=== PATIENT | male | born 1955 | race Caucasian/White ===

== ENCOUNTER 2020-06-17 06:52 | Outpatient (REF) | payer OTHER, SELFPAY ==
[2020-06-17 11:39] LABS: Hematocrit 50.4 % (42-52); Hemoglobin 17.2 g/dl (14.0-18.0)
[2020-06-17 12:04] LABS: Alanine Aminotransferase 50 U/L (0-40); Albumin Level 4.8 g/dL (3.5-5.0); Alkaline Phosphatase 60 U/L (39-117); Anion Gap 18 (12-20); Aspartate Amino Transferase 31 U/L (5-37); Bilirubin Total 1.5 mg/dL (0.0-1.0); Blood Urea Nitrogen 14 mg/dL (9-16); Calcium 10.1 mg/dL (8.4-10.2); Carbon Dioxide 27 mmol/L (22-29); Chloride 101 mmol/L (96-108); Cholesterol 158 mg/dL; Estimated Glomerular Filt Rate > 60; Glucose Fasting 94 mg/dL (60-99); HDL Cholesterol 46 mg/dL; LDL Cholesterol Calculated 97 mg/dl; Potassium 3.5 mmol/L (3.3-5.1); Sodium 142 mmol/L (135-145); Total Protein 7.8 g/dL (6.5-8.0); Triglycerides 75 mg/dL
== END 2020-06-17 06:53 | disposition home or self-care (01) ==
LOC: HO.HMGCLDS 06:52
PROVIDERS: PCP Internal Medicine; Visit Provider Internal Medicine
DX: Z00.01 Encounter for general adult medical examination with abnormal findings (principal); I10 Essential (primary) hypertension
CPT/HCPCS: 36415; 80053; 80061; 85014; 85018

== ENCOUNTER 2021-03-06 06:31 | Outpatient (REF) | payer OTHER, SELFPAY ==
[2021-03-06 12:01] LABS: Alanine Aminotransferase 30 U/L (0-40); Albumin Level 4.6 g/dL (3.5-5.0); Alkaline Phosphatase 53 U/L (39-117); Anion Gap 12 (12-20); Aspartate Amino Transferase 22 U/L (5-37); Bilirubin Total 1.1 mg/dL (0.0-1.0); Blood Urea Nitrogen 15 mg/dL (9-16); Calcium 10.2 mg/dL (8.4-10.2); Carbon Dioxide 32 mmol/L (22-29); Chloride 102 mmol/L (96-108); Estimated Glomerular Filt Rate > 60; Glucose Random 87 mg/dL (60-115); Potassium 3.6 mmol/L (3.3-5.1); Sodium 142 mmol/L (135-145); Total Protein 7.5 g/dL (6.5-8.0)
[2021-03-07 17:57] LABS: LDL Cholesterol Direct 95 mg/dL (<100)
== END 2021-03-06 06:32 | disposition home or self-care (01) ==
LOC: HO.HMGCLDS 06:31
PROVIDERS: PCP Internal Medicine; Visit Provider Internal Medicine
DX: I10 Essential (primary) hypertension (principal)
CPT/HCPCS: 36415; 80053; 83721

== ENCOUNTER 2021-08-18 07:21 | Outpatient (REF) | payer OTHER, SELFPAY ==
[2021-08-18 11:31] LABS: MANUAL DIFF FLAG NO
[2021-08-18 11:42] LABS: Basophils Percent Auto 0.2 % (0-2); Eosinophils Absolute Auto 0.7 X10*3/uL (0.0-0.4); Eosinophils Percent Auto 7.4 % (0-4); Hematocrit 47.8 % (42.0-52.0); Hemoglobin 16.6 g/dl (14.0-18.0); Imm Gran Abs Auto 0.02 X10*3/uL (0.00-0.03); Imm Gran Pct Auto 0.2 % (0.0-0.4); Lymphocytes Absolute Auto 1.9 X10*3/uL (1.2-4.9); Mean Corpuscular HGB Conc 34.7 g/dl (31.0-36.0); Mean Corpuscular Hemoglobin 31.9 pg (27.0-33.0); Mean Corpuscular Volume 91.9 fL (80.0-98.0); Monocytes Absolute Auto 0.6 X10*3/uL (0.1-1.2); Monocytes Percent Auto 6.7 % (2-11); Neutrophils Absolute Auto 5.7 x10*3/uL (2.0-8.3); Neutrophils Percent Auto 64.5 % (45-73); Platelet Count 264 X10*3/uL (160-400); Red Cell Distribution Width 12.9 % (11.0-16.0); White Blood Count 8.8 X10*3/uL (4.8-10.8)
[2021-08-18 12:23] LABS: Vitamin B12 186 pg/mL (200-900)
[2021-08-18 12:40] LABS: Alanine Aminotransferase 34 U/L (0-40); Albumin Level 4.5 g/dL (3.5-5.0); Anion Gap 14 (12-20); Aspartate Amino Transferase 24 U/L (5-37); Bilirubin Total 1.2 mg/dL (0.0-1.0); Blood Urea Nitrogen 15 mg/dL (9-16); Calcium 9.1 mg/dL (8.4-10.2); Carbon Dioxide 28 mmol/L (22-29); Chloride 103 mmol/L (96-108); Cholesterol 175 mg/dL; Estimated Glomerular Filt Rate > 60; Glucose Fasting 98 mg/dL (60-99); Potassium 3.8 mmol/L (3.3-5.1); Sodium 141 mmol/L (135-145); Total Protein 7.4 g/dL (6.5-8.0); Triglycerides 74 mg/dL
[2021-08-18 12:41] LABS: Alkaline Phosphatase 61 U/L (39-117); HDL Cholesterol 50 mg/dL; LDL Cholesterol Calculated 111 mg/dl
[2021-08-22 16:26] LABS: Vitamin D 25-OH, D2 <4 ng/mL; Vitamin D 25-OH, D3 28 ng/mL; Vitamin D 25-OH, Total 28 ng/mL (30-100)
== END 2021-08-18 07:22 | disposition home or self-care (01) ==
LOC: HO.HMGCLDS 07:21
PROVIDERS: Visit Provider Internal Medicine
DX: I10 Essential (primary) hypertension (principal)
CPT/HCPCS: 36415; 80053; 80061; 82306; 82607; 84443; 85025

== ENCOUNTER 2021-12-22 06:38 | Outpatient (REF) | payer OTHER, SELFPAY ==
[2021-12-22 12:17] LABS: Alanine Aminotransferase 31 U/L (0-40); Albumin Level 4.5 g/dL (3.5-5.0); Alkaline Phosphatase 57 U/L (39-117); Anion Gap 16 (12-20); Aspartate Amino Transferase 25 U/L (5-37); Bilirubin Total 0.9 mg/dL (0.0-1.0); Blood Urea Nitrogen 18 mg/dL (9-16); Calcium 9.6 mg/dL (8.4-10.2); Carbon Dioxide 27 mmol/L (22-29); Chloride 101 mmol/L (96-108); Estimated Glomerular Filt Rate > 60; Glucose Fasting 103 mg/dL (60-99); Potassium 3.3 mmol/L (3.3-5.1); Sodium 141 mmol/L (135-145); Total Protein 7.3 g/dL (6.5-8.0)
[2021-12-22 12:39] LABS: Vitamin B12 497 pg/mL (200-900)
== END 2021-12-22 06:39 | disposition home or self-care (01) ==
LOC: HO.HMGCLDS 06:38
PROVIDERS: PCP Internal Medicine; Visit Provider Internal Medicine
DX: I10 Essential (primary) hypertension (principal); E53.8 Deficiency of other specified B group vitamins
CPT/HCPCS: 36415; 80053; 82607

== ENCOUNTER 2022-04-24 06:47 | Outpatient (REF) | payer OTHER, SELFPAY ==
[2022-04-24 11:24] LABS: MANUAL DIFF FLAG NO
[2022-04-24 11:40] LABS: Basophils Percent Auto 0.4 % (0-2); Eosinophils Absolute Auto 0.5 X10*3/uL (0.0-0.4); Eosinophils Percent Auto 6.2 % (0-4); Hematocrit 47.4 % (42.0-52.0); Hemoglobin 16.5 g/dl (14.0-18.0); Imm Gran Abs Auto 0.02 X10*3/uL (0.00-0.03); Imm Gran Pct Auto 0.2 % (0.0-0.4); Lymphocytes Absolute Auto 1.8 X10*3/uL (1.2-4.9); Lymphocytes Percent Auto 21.6 % (20-40); Mean Corpuscular HGB Conc 34.8 g/dl (31.0-36.0); Mean Corpuscular Hemoglobin 31.8 pg (27.0-33.0); Mean Corpuscular Volume 91.3 fL (80.0-98.0); Mean Platelet Volume 10.5 fL (9.4-12.4); Monocytes Absolute Auto 0.7 X10*3/uL (0.1-1.2); Monocytes Percent Auto 8.1 % (2-11); Neutrophils Absolute Auto 5.4 x10*3/uL (2.0-8.3); Neutrophils Percent Auto 63.5 % (45-73); Platelet Count 241 X10*3/uL (160-400); Red Blood Count 5.19 X10*6/uL (4.60-5.80); Red Cell Distribution Width 12.6 % (11.0-16.0); White Blood Count 8.5 X10*3/uL (4.8-10.8)
[2022-04-24 12:03] LABS: Alanine Aminotransferase 41 U/L (0-40); Albumin Level 4.4 g/dL (3.5-5.0); Alkaline Phosphatase 56 U/L (39-117); Anion Gap 12 (12-20); Aspartate Amino Transferase 26 U/L (5-37); Bilirubin Total 1.3 mg/dL (0.0-1.0); Blood Urea Nitrogen 14 mg/dL (9-16); Calcium 9.7 mg/dL (8.4-10.2); Carbon Dioxide 29 mmol/L (22-29); Chloride 104 mmol/L (96-108); Cholesterol 164 mg/dL; Estimated Glomerular Filt Rate > 60; Glucose Fasting 100 mg/dL (60-99); HDL Cholesterol 44 mg/dL; LDL Cholesterol Calculated 108 mg/dl; Potassium 3.7 mmol/L (3.3-5.1); Sodium 141 mmol/L (135-145); Total Protein 6.9 g/dL (6.5-8.0); Triglycerides 62 mg/dL
[2022-04-24 12:13] LABS: TSH reflex Free T4 0.94 uIU/mL (0.32-4.0); Vitamin B12 672 pg/mL (200-900)
[2022-05-02 14:14] LABS: Vitamin D 25-OH, D2 <4 ng/mL; Vitamin D 25-OH, D3 18 ng/mL; Vitamin D 25-OH, Total 18 ng/mL (30-100)
== END 2022-04-24 06:48 | disposition home or self-care (01) ==
LOC: HO.HMGCLDS 06:47
PROVIDERS: PCP Internal Medicine; Visit Provider Internal Medicine
DX: E53.8 Deficiency of other specified B group vitamins (principal); I10 Essential (primary) hypertension; E55.9 Vitamin D deficiency, unspecified
CPT/HCPCS: 36415; 80053; 80061; 82306; 82607; 84443; 85025

== ENCOUNTER 2022-08-27 08:47 | Outpatient (REF) | payer OTHER, SELFPAY | END 2022-08-27 08:48 | disposition home or self-care (01) | LOC: HO.HMGCLDS 08:47 | PROVIDERS: PCP Internal Medicine; Visit Provider Internal Medicine | DX: Z00.01 Encounter for general adult medical examination with abnormal findings (principal); E53.8 Deficiency of other specified B group vitamins; I10 Essential (primary) hypertension | CPT/HCPCS: 36415; 80053; 80061; 82607 ==

== ENCOUNTER 2022-11-17 09:54 | Outpatient (AMB) | payer OTHER, SELFPAY ==
[2022-11-17 09:57] VITALS: BP 144/82; PULSE 74; O2SAT 98; BMI 29.2
--- NOTE | 2022-11-17 09:57 | A.OFFPC_ITS ---
Vital Signs 11/17/22 09:57 Height 5 ft 8 in Weight 192 lb 4 oz BMI 29.2 BP 144/82 H Blood Pressure Location Lt brachial Position Sitting Pulse 74 Pulse Source Pulse Oximeter Pulse Oximetry (%) 98 Oxygen Delivery Method Room Air Intake Visit Reasons: 3 month follow up Allergies codeine [CODEINE] Allergy (Severe, Verified 11/17/22 09:57) STOMACH UPSET lisinopril Adverse Reaction (Unknown, Verified 11/17/22 09:57) cough Codeine Sulfate Adverse Reaction (Unknown, Uncoded 08/21/22 10:38) nausea and vomiting Medication List - Last Reconciled 11/17/22 by Jessy Goodwin MD amlodipine 10 mg PO DAILY 90 days chlorthalidone 25 mg PO DAILY 90 days cyanocobalamin (vitamin B-12) 1,000 mcg PO DAILY 90 days metoprolol succinate ER 100 mg PO DAILY 90 days Tobacco use date assessed: 11/17/22 Fall risk assessment: No Falls in past year Last assessed Fall Risk: 11/17/22 Dental Screening Dental Screen Date: 11/17/22 Did you have a dental visit in the last 12 months?: Yes Did you have a dental problem in the last 6 months where you did not have access to dental care?: No Was dental information given to patient?: Patient has dentist HPI 3 month follow up HPI Details Patient is 67-year-old male came in today for his regular follow-up appointment on blood pressure.? Patient is doing well offered no new complaints today? Hypertension:? Blood pressure is elevated today, he has been dealing with new insurance which is causing some distress. He is taking amlodipine 10 mg, chlorthalidone 25 mg and metoprolol 100 mg IFS : stable / diet control last fasting sugar is 100 LFT : mild elevation, but stable We will repeat labs again before his next visit B12 level was too high in August, he has stopped the supplement Follow-up 4 months [facility] Social History Housing: House Patient Tobacco Use Status: Never used Tobacco e-Cigarette/Vaping Use: Never Used Second Hand Smoke Exposure: No service: No Current occupational status: employed Cognitive needs: No Hearing needs: No Vision needs: No Questionnaire Thrive Questionnaire Date Thrive assessed: 08/21/22 AUDIT C Alcohol Use Questionnaire (AUDIT-C) 1. How often do you have a drink containing alcohol?: Never 3. How often do you have six or more drinks on one occasion?: Never Total Score: 0 Score Reviewed/Action Taken: Yes RAFFI-7 AMB Questionnaire RAFFI-7 Date RAFFI - 7 assessed: 08/21/22 Source: Developed by Drs. Robin Andrews, Tanya Rodríguez, Albert Henry and colleagues, with an educational mavis from [employer]. Review of Systems Const Denies chills and Denies fever(s) ENT Denies epistaxis and Denies nasal discharge Card Denies chest pain Resp Denies chest congestion, Denies cough and Denies hemoptysis GI Denies diarrhea and Denies nausea Skin/Breast Denies rash Neuro Reports no additional complaints Psych Reports no additional complaints Endo Reports no additional complaints Physical exam (Primary Care) Vital Signs: Last Vital Signs Pulse 74 11/17/22 09:57 BP 144/82 H 11/17/22 09:57 Pulse Ox 98 11/17/22 09:57 Oxygen Delivery Method Room Air 11/17/22 09:57 BMI result Body Mass Index 29.2 Tobacco/Smoking Status: Tobacco use Status Tobacco use date assessed 11/17/22 11/17/22 09:58 Patient Tobacco Use Status Never used Tobacco 11/17/22 09:58 e-Cigarette/Vaping Use Never Used 11/17/22 09:58 Thrive Assessment: Date of Thrive Assessment Date Thrive assessed 08/21/22 11/17/22 09:58 Const General: cooperative, comfortable and no acute distress Orientation/consciousness: patient oriented x3 HENMT Head: Yes normocephalic Eyes General: appearance normal, both eyes and all related structures Neck Neck: Yes supple Resp Effort & Inspection: normal respiratory effort, no cough and no stridor Cardio Rhythm: regular rhythm Heart sounds: S1 normal heart sound present and S2 normal heart sound present Skin General skin exam: turgor normal Neuro General: patient oriented x3, tone normal and moves all extremities Extrem Right lower extremity: no edema Left lower extremity: no edema Assessment and Plan Assessment & Plan (1) Hypertension, essential: Code(s): I10 - Essential (primary) hypertension (2) B12 deficiency: Code(s): E53.8 - Deficiency of other specified B group vitamins (3) LFT elevation: Code(s): R79.89 - Other specified abnormal findings of blood chemistry (4) Impaired fasting blood sugar: Code(s): R73.01 - Impaired fasting glucose Plan Patient is 67-year-old male came in today for his regular follow-up appointment on blood pressure.? Patient is doing well offered no new complaints today? Hypertension:? Blood pressure is elevated today, he has been dealing with new insurance which is causing some distress. He is taking amlodipine 10 mg, chlorthalidone 25 mg and metoprolol 100 mg IFS : stable / diet control last fasting sugar is 100 LFT : mild elevation, but stable We will repeat labs again before his next visit B12 level was too high in August, he has stopped the supplement Follow-up 4 months Orders: Orders Lipid Panel Today I10 - Essential (primary) hypertension Vitamin D 25-OH (D2 and D3) Today E53.8 - Deficiency of other specified B group vitamins Complete Blood Count Auto Diff Today I10 - Essential (primary) hypertension Comprehensive [place]. Panel Fast Today I10 - Essential (primary) hypertension Coding Level of Care Code Est Pt Level 4 (66107) Diagnoses Hypertension, essential I10 B12 deficiency E53.8 LFT elevation R79.89 Impaired fasting blood sugar R73.01
== END 2022-11-17 11:42 | disposition home or self-care (01) ==
PROVIDERS: PCP Internal Medicine; Visit Provider Internal Medicine
DX: I10 Essential (primary) hypertension (principal); E53.8 Deficiency of other specified B group vitamins; R79.89 Other specified abnormal findings of blood chemistry; R73.01 Impaired fasting glucose
CPT/HCPCS: 99214

== ENCOUNTER 2023-03-17 08:37 | Outpatient (REF) | payer MEDICARE, SELFPAY ==
[2023-03-17 11:15] LABS: MANUAL DIFF FLAG NO
[2023-03-17 11:19] LABS: Basophils Percent Auto 0.5 % (0-2); Eosinophils Absolute Auto 0.5 X10*3/uL (0.0-0.4); Eosinophils Percent Auto 5.9 % (0-4); Hematocrit 49.2 % (42.0-52.0); Hemoglobin 17.2 g/dl (14.0-18.0); Imm Gran Abs Auto 0.02 X10*3/uL (0.00-0.03); Imm Gran Pct Auto 0.2 % (0.0-0.4); Lymphocytes Percent Auto 24.2 % (20-40); Mean Corpuscular Hemoglobin 31.4 pg (27.0-33.0); Mean Corpuscular Volume 89.9 fL (80.0-98.0); Mean Platelet Volume 10.2 fL (9.4-12.4); Monocytes Absolute Auto 0.7 X10*3/uL (0.1-1.2); Monocytes Percent Auto 8.5 % (2-11); Neutrophils Absolute Auto 4.9 x10*3/uL (2.0-8.3); Neutrophils Percent Auto 60.7 % (45-73); Platelet Count 266 X10*3/uL (160-400); Red Blood Count 5.47 X10*6/uL (4.60-5.80); Red Cell Distribution Width 12.5 % (11.0-16.0); White Blood Count 8.1 X10*3/uL (4.8-10.8)
[2023-03-17 11:52] LABS: Alanine Aminotransferase 46 U/L (0-40); Albumin Level 4.5 g/dL (3.5-5.0); Alkaline Phosphatase 53 U/L (39-117); Anion Gap 13 (12-20); Aspartate Amino Transferase 30 U/L (5-37); Bilirubin Total 1.1 mg/dL (0.0-1.0); Blood Urea Nitrogen 12 mg/dL (9-16); Carbon Dioxide 31 mmol/L (22-29); Chloride 100 mmol/L (96-108); Cholesterol 167 mg/dL (<200); Estimated Glomerular Filt Rate > 60; Glucose Fasting 102 mg/dL (60-99); HDL Cholesterol 43 mg/dL (>40); LDL Cholesterol Calculated 109 mg/dL (<100); Potassium 3.3 mmol/L (3.3-5.1); Sodium 141 mmol/L (135-145); Total Protein 7.7 g/dL (6.5-8.0); Triglycerides 78 mg/dL (<150)
[2023-03-23 13:54] LABS: Vitamin D 25-OH, D2 <4 ng/mL; Vitamin D 25-OH, D3 16 ng/mL; Vitamin D 25-OH, Total 16 ng/mL (30-100)
== END 2023-03-17 08:38 | disposition home or self-care (01) ==
LOC: HO.HMGCLDS 08:37
PROVIDERS: PCP Internal Medicine; Visit Provider Internal Medicine
DX: I10 Essential (primary) hypertension (principal); E53.8 Deficiency of other specified B group vitamins
CPT/HCPCS: 36415; 80053; 80061; 82306; 85025

== ENCOUNTER 2023-03-19 08:28 | Outpatient (AMB) | payer MEDICARE, SELFPAY ==
[2023-03-19 08:31] VITALS: BP 146/82; PULSE 74; O2SAT 98; BMI 29.8
--- NOTE | 2023-03-19 08:31 | MHC.PC.OV ---
Vital Signs 03/19/23 08:31 Height 5 ft 8 in Weight 196 lb 2 oz BMI 29.8 BP 146/82 H Blood Pressure Location Lt brachial Position Sitting Pulse 74 Pulse Source Pulse Oximeter Pulse Oximetry (%) 98 Oxygen Delivery Method Room Air Intake Visit Reasons: 4 month follow up Allergies codeine [CODEINE] Allergy (Severe, Verified 03/19/23 08:34) STOMACH UPSET lisinopril Adverse Reaction (Unknown, Verified 03/19/23 08:34) cough Codeine Sulfate Adverse Reaction (Unknown, Uncoded 08/21/22 10:38) nausea and vomiting Medication List - Last Reconciled 03/19/23 by Jessy Goodwin MD amlodipine 10 mg PO DAILY 90 days chlorthalidone 25 mg PO DAILY 90 days cyanocobalamin (vitamin B-12) 1,000 mcg PO DAILY 90 days metoprolol succinate ER 100 mg PO DAILY 90 days Tobacco use date assessed: 03/19/23 Fall risk assessment: No Falls in past year Dental Screening Dental Screen Date: 03/19/23 Did you have a dental visit in the last 12 months?: Yes Did you have a dental problem in the last 6 months where you did not have access to dental care?: No Was dental information given to patient?: Patient has dentist HPI 4 month follow up HPI Details Patient is 67-year-old male came in today for his regular follow-up appointment Patient has been feeling under stress as his is going in for cardiac checkup today. His blood pressure is elevated however patient is monitoring it at home as well He tells me that it runs around 130 systolic He is taking amlodipine 10 mg, chlorthalidone 25 mg and metoprolol 100 mg, tolerating medications no side effects IFS : stable / diet control last fasting sugar is 100 LFT : mild elevation, but stable Labs were done recently reviewed B12 supplement on hold Follow-up 4 months [facility] Social History Housing: House Patient Tobacco Use Status: Never used Tobacco e-Cigarette/Vaping Use: Never Used Second Hand Smoke Exposure: No service: No Current occupational status: employed Cognitive needs: No Hearing needs: No Vision needs: No Questionnaire PHQ-9 Over the last 2 weeks, how often have you been bothered by any of the following problems? 1. Little interest or pleasure in doing things: not at all 2. Feeling down, depressed, or hopeless: not at all 3. Trouble falling or staying asleep, or sleeping too much: not at all 4. Feeling tired or having little energy: not at all 5. Poor appetite or overeating: not at all 6. Feeling bad about yourself - or that you are a failure or have let yourself or your family down: not at all 7. Trouble concentrating on things, such as reading the newspaper or watching television: not at all 8. Moving or speaking so slowly that other people could have noticed. Or the opposite - being so fidgety or restless that you have been moving around a lot more than usual: not at all 9. Thoughts that you would be better off or of hurting yourself in some way: not at all Total score: 0 Depression Screening Interpretation: Negative Depression Screening Done: Yes 51937 - PHQ-9 Billing: Yes Source: Developed by Drs. Robin Andrews, Tanya Rodríguez, Albert Henry and colleagues, with an educational mavis from [employer]. Thrive Questionnaire Date Thrive assessed: 03/19/23 I am a: Patient What is your living situation today?: I have a steady place to live Within the past 12 months, did the food you bought not last and you didn't have the money to get more?: Never true Within the past 12 months, did you worry whether your food would run out before you got money to buy more?: Never true Do you have trouble paying for medicines?: No Do you have trouble getting transportation to medical appointments?: No Do you have trouble paying your heating and electricity bill?: No Do you have trouble taking care of your child, family member or friend?: No Do you have trouble with day-to-day activities such as bathing, preparing meals, shopping, managing finances, etc.?: No Are you currently unemployed and looking for a job?: No Are you interested in more education?: No Please select the resources that you would like help with: None Currently or been in a relationship where the following occur: no concerns reported THRIVE Score: 0 AUDIT C Alcohol Use Questionnaire (AUDIT-C) 1. How often do you have a drink containing alcohol?: Never 3. How often do you have six or more drinks on one occasion?: Never Total Score: 0 Score Reviewed/Action Taken: Yes RAFFI-7 AMB Questionnaire RAFFI-7 Date RAFFI - 7 assessed: 03/19/23 Feeling nervous, anxious, or on edge: 0 = Not at all Not being able to stop or control worryin = Not at all Worrying too much about different things: 0 = Not at all Trouble relaxin = Not at all Being so restless that it is hard to sit still: 0 = Not at all Becoming easily annoyed or irritable: 0 = Not at all Feeling afraid as if something awful might happen: 0 = Not at all Total RAFFI-7 score (0-4 normal; 5-9 mild; 10-14 moderate; 15-21 severe): 0 Source: Developed by Drs. Robin Andrews, Tanya Rodríguez, Albert Henry and colleagues, with an educational mavis from [employer]. RAFFI-7 Assessment Billing RAFFI-7 Assessment Tool: RAFFI-7 Assessment 79432 Review of Systems Const Denies chills and Denies fever(s) ENT Denies epistaxis and Denies nasal discharge Card Denies chest pain Resp Denies chest congestion, Denies cough and Denies hemoptysis GI Denies diarrhea and Denies nausea Skin/Breast Denies rash Neuro Reports no additional complaints Psych Reports no additional complaints Endo Reports no additional complaints Physical exam (Primary Care) Vital Signs: Last Vital Signs Pulse 74 03/19/23 08:31 BP 146/82 H 03/19/23 08:31 Pulse Ox 98 03/19/23 08:31 Oxygen Delivery Method Room Air 03/19/23 08:31 BMI result Body Mass Index 29.8 Tobacco/Smoking Status: Tobacco use Status Tobacco use date assessed 03/19/23 03/19/23 08:37 Patient Tobacco Use Status Never used Tobacco 03/19/23 08:37 e-Cigarette/Vaping Use Never Used 03/19/23 08:37 PHQ-9: PHQ-9 Score PHQ-9: Total score 0 03/19/23 09:02 Depression Screening Interpretation: Negative Thrive Assessment: Date of Thrive Assessment Date Thrive assessed 03/19/23 03/19/23 09:02 Currently or been in a relationship where the following occur: no concerns reported Const General: cooperative, comfortable and no acute distress Orientation/consciousness: patient oriented x3 HENMT Head: Yes normocephalic Eyes General: appearance normal, both eyes and all related structures Neck Neck: Yes supple Resp Effort & Inspection: normal respiratory effort, no cough and no stridor Cardio Rhythm: regular rhythm Heart sounds: S1 normal heart sound present and S2 normal heart sound present Skin General skin exam: turgor normal Neuro General: patient oriented x3, tone normal and moves all extremities Extrem Right lower extremity: no edema Left lower extremity: no edema Assessment and Plan Assessment & Plan (1) Hypertension, essential: Code(s): I10 - Essential (primary) hypertension (2) B12 deficiency: Code(s): E53.8 - Deficiency of other specified B group vitamins (3) LFT elevation: Code(s): R79.89 - Other specified abnormal findings of blood chemistry (4) Impaired fasting blood sugar: Code(s): R73.01 - Impaired fasting glucose Plan Patient is 67-year-old male came in today for his regular follow-up appointment Patient has been feeling under stress as his is going in for cardiac checkup today. His blood pressure is elevated however patient is monitoring it at home as well He tells me that it runs around 130 systolic He is taking amlodipine 10 mg, chlorthalidone 25 mg and metoprolol 100 mg, tolerating medications no side effects IFS : stable / diet control last fasting sugar is 100 LFT : mild elevation, but stable Labs were done recently reviewed B12 supplement on hold Follow-up 4 months Coding Level of Care Code Est Pt Level 3 (10770) Diagnoses Hypertension, essential I10 B12 deficiency E53.8 LFT elevation R79.89 Impaired fasting blood sugar R73.01 Additional Codes RAFFI-7 Assessment Billing - RAFFI-7 Assessment Tool: RAFFI-7 Assessment 29461 ([id number])
== END 2023-03-19 09:00 | disposition home or self-care (01) ==
PROVIDERS: PCP Internal Medicine; Visit Provider Internal Medicine
DX: I10 Essential (primary) hypertension (principal); E53.8 Deficiency of other specified B group vitamins; R79.89 Other specified abnormal findings of blood chemistry; R73.01 Impaired fasting glucose
CPT/HCPCS: 99213

== ENCOUNTER 2023-09-03 10:40 | Outpatient (AMB) | payer MEDICARE, SELFPAY ==
[2023-09-03 10:43] VITALS: BP 144/80; PULSE 76; O2SAT 98
--- NOTE | 2023-09-03 10:43 | MHC.PC.OV ---
Vital Signs 09/03/23 10:43 Height 5 ft 8 in BP 144/80 H Blood Pressure Location Lt brachial Position Sitting Pulse 76 Pulse Source Pulse Oximeter Pulse Oximetry (%) 98 Oxygen Delivery Method Room Air Intake Visit Reasons: PE Allergies codeine [CODEINE] Allergy (Severe, Verified 09/03/23 10:44) STOMACH UPSET lisinopril Adverse Reaction (Unknown, Verified 09/03/23 10:44) cough Codeine Sulfate Adverse Reaction (Unknown, Uncoded 08/21/22 10:38) nausea and vomiting Medication List - Last Reconciled 09/03/23 by Jessy Goodwin MD amlodipine 10 mg PO DAILY 90 days chlorthalidone 25 mg PO DAILY 90 days cholecalciferol (vitamin D3) 25 mcg PO DAILY 90 days cyanocobalamin (vitamin B-12) 1,000 mcg PO DAILY 90 days metoprolol succinate ER 100 mg PO DAILY 90 days Tobacco use date assessed: 09/03/23 Fall risk assessment: No Falls in past year Last assessed Fall Risk: 09/03/23 Dental Screening Dental Screen Date: 09/03/23 Did you have a dental visit in the last 12 months?: Yes Did you have a dental problem in the last 6 months where you did not have access to dental care?: No Was dental information given to patient?: Patient has dentist HPI PE HPI Details Patient is 68-year-old male came in today for his yearly checkup Patient just turned 68 so he can no longer have physical exam as per his insurance requirement Still does not want to have colonoscopy, I agree to do Cologuard His blood pressure is elevated however patient is monitoring it at home as well He tells me that it runs around 130 systolic He is taking amlodipine 10 mg, chlorthalidone 25 mg and metoprolol 100 mg, tolerating medications no side effects IFS : stable / diet control, I have added hemoglobin A1c for this labs LFT : mild elevation, but stable B12 supplement for mild neuropathy at the bottom of feet He has a family history of neuropathy in his mother and brother as well However he is very active in sports and it is not bothering him that much Only when he is barefoot Labs are needed today Follow-up 3 months [facility] Social History Housing: House Patient Tobacco Use Status: Never used Tobacco e-Cigarette/Vaping Use: Never Used Second Hand Smoke Exposure: No service: No Current occupational status: employed Cognitive needs: No Hearing needs: No Vision needs: No Questionnaire PHQ-9 Over the last 2 weeks, how often have you been bothered by any of the following problems? 1. Little interest or pleasure in doing things: not at all 2. Feeling down, depressed, or hopeless: not at all 3. Trouble falling or staying asleep, or sleeping too much: not at all 4. Feeling tired or having little energy: not at all 5. Poor appetite or overeating: not at all 6. Feeling bad about yourself - or that you are a failure or have let yourself or your family down: not at all 7. Trouble concentrating on things, such as reading the newspaper or watching television: not at all 8. Moving or speaking so slowly that other people could have noticed. Or the opposite - being so fidgety or restless that you have been moving around a lot more than usual: not at all 9. Thoughts that you would be better off or of hurting yourself in some way: not at all Total score: 0 Depression Screening Interpretation: Negative Depression Screening Done: Yes 77616 - PHQ-9 Billing: Yes Source: Developed by Drs. Robin Andrews, Tanya Rodríguez, Albert Henry and colleagues, with an educational mavis from [employer]. Thrive Questionnaire Date Thrive assessed: 09/03/23 I am a: Patient What is your living situation today?: I have a steady place to live Within the past 12 months, did the food you bought not last and you didn't have the money to get more?: Never true Within the past 12 months, did you worry whether your food would run out before you got money to buy more?: Never true Do you have trouble paying for medicines?: No Do you have trouble getting transportation to medical appointments?: No Do you have trouble paying your heating and electricity bill?: No Do you have trouble taking care of your child, family member or friend?: No Do you have trouble with day-to-day activities such as bathing, preparing meals, shopping, managing finances, etc.?: No Are you currently unemployed and looking for a job?: No Are you interested in more education?: No Please select the resources that you would like help with: None Currently or been in a relationship where the following occur: No concerns reported THRIVE Score: 0 AUDIT C Alcohol Use Questionnaire (AUDIT-C) 1. How often do you have a drink containing alcohol?: Never 3. How often do you have six or more drinks on one occasion?: Never Total Score: 0 Score Reviewed/Action Taken: Yes RAFFI-7 AMB Questionnaire RAFFI-7 Date RAFFI - 7 assessed: 09/03/23 Feeling nervous, anxious, or on edge: 0 = Not at all Not being able to stop or control worryin = Not at all Worrying too much about different things: 0 = Not at all Trouble relaxin = Not at all Being so restless that it is hard to sit still: 0 = Not at all Becoming easily annoyed or irritable: 0 = Not at all Feeling afraid as if something awful might happen: 0 = Not at all Total RAFFI-7 score (0-4 normal; 5-9 mild; 10-14 moderate; 15-21 severe): 0 Source: Developed by Drs. Robin Andrews, Tanya Rodríguez, Albert Henry and colleagues, with an educational mavis from [employer]. RAFFI-7 Assessment Billing RAFFI-7 Assessment Tool: RAFFI-7 Assessment 88229 Review of Systems Const Denies chills, Denies fever(s) and Denies headache(s) Eyes Denies blurry vision ENT Denies headache(s), Denies nasal discharge, Denies nasal obstruction, Denies odynophagia and Denies sinus pain Card Denies chest pain at rest and Denies chest pain with activity Resp Denies cough and Denies hemoptysis GI Denies diarrhea, Denies odynophagia, Denies vomiting and Denies hematemesis Reports as per HPI Musc Denies abnormal gait Skin/Breast Reports as per HPI Neuro Denies Neuro-related abnormal movements, Denies Abnormal speech present, Denies abnormal gait, Denies headache(s) and Denies Sensory deficit (Neuro) Psych Denies mood swings and Denies paranoia Endo Reports as per HPI Mookie/Lymph Reports as per HPI Aller/Immun Reports as per HPI Physical exam (Primary Care) Vital Signs: Last Vital Signs Pulse 76 09/03/23 10:43 BP 144/80 H 09/03/23 10:43 Pulse Ox 98 09/03/23 10:43 Oxygen Delivery Method Room Air 09/03/23 10:43 Tobacco/Smoking Status: Tobacco use Status Tobacco use date assessed 09/03/23 09/03/23 10:46 Patient Tobacco Use Status Never used Tobacco 09/03/23 10:46 e-Cigarette/Vaping Use Never Used 09/03/23 10:46 PHQ-9: PHQ-9 Score PHQ-9: Total score 0 09/03/23 11:15 Depression Screening Interpretation: Negative Thrive Assessment: Date of Thrive Assessment Date Thrive assessed 09/03/23 09/03/23 10:51 Currently or been in a relationship where the following occur: No concerns reported Const General: cooperative, comfortable and no acute distress Orientation/consciousness: patient oriented x3 HENMT Head: Yes normocephalic and Yes atraumatic Eyes General: appearance normal, both eyes and all related structures Pupils: Equal, round and reactive pupils present EOM: EOMs intact bilaterally Neck Neck: Yes supple and No lymphadenopathy Thyroid: Thyroid normal Lymphatic: no lymphadenopathy noted Resp Effort & Inspection: normal respiratory effort and able to speak in complete sentences Auscultation: clear to auscultation bilaterally Cardio Heart sounds: S1 normal heart sound present and S2 normal heart sound present GI Palpation (GI): Soft to palpation and nontender Auscultation: normal bowel sounds General: Yes no CVA tenderness Back/Spine/Pelvis Back: no CVA tenderness Skin General skin exam: elasticity normal and turgor normal Neuro General: patient oriented x3 and gait normal Cranial nerves: Yes Equal, round and reactive pupils present Speech: No Abnormal speech present Sensory Exam: No Sensory deficit (Neuro) Coordination: tandem gait normal and Romberg test negative Extrem General: Yes normal exam except as noted and No edema Assessment and Plan Assessment & Plan (1) Hypertension, essential: Code(s): I10 - Essential (primary) hypertension (2) B12 deficiency: Code(s): E53.8 - Deficiency of other specified B group vitamins (3) LFT elevation: Code(s): R79.89 - Other specified abnormal findings of blood chemistry (4) Impaired fasting blood sugar: Code(s): R73.01 - Impaired fasting glucose (5) Vitamin D deficiency: Code(s): E55.9 - Vitamin D deficiency, unspecified Plan Patient is 68-year-old male came in today for his yearly checkup Patient just turned 68 so he can no longer have physical exam as per his insurance requirement Still does not want to have colonoscopy, I agree to do Cologuard His blood pressure is elevated however patient is monitoring it at home as well He tells me that it runs around 130 systolic I have told him to bring his blood pressure monitor next time He is taking amlodipine 10 mg, chlorthalidone 25 mg and metoprolol 100 mg, tolerating medications no side effects IFS : stable / diet control, I have added hemoglobin A1c for this labs LFT : mild elevation, but stable B12 supplement for mild neuropathy at the bottom of feet He has a family history of neuropathy in his mother and brother as well However he is very active in sports and it is not bothering him that much Only when he is barefoot Labs are needed today Follow-up 3 months 45 minutes spent in care of this patient, including reviewing the chart previous labs [id number], coordination of care Orders: Orders Complete Blood Count Auto Diff Today E53.8 - Deficiency of other specified B group vitamins, I10 - Essential (primary) hypertension, R73.01 - Impaired fasting glucose, R79.89 - Other specified abnormal findings of blood chemistry, Z00.01 - Encounter for general adult medical examination with abnormal findings Comprehensive [place]. Panel Fast Today E53.8 - Deficiency of other specified B group vitamins, I10 - Essential (primary) hypertension, R73.01 - Impaired fasting glucose, R79.89 - Other specified abnormal findings of blood chemistry, Z00.01 - Encounter for general adult medical examination with abnormal findings Vitamin B12 Today E53.8 - Deficiency of other specified B group vitamins Vitamin D 25-OH (D2 and D3) Today E55.9 - Vitamin D deficiency, unspecified Lipid Panel Today E53.8 - Deficiency of other specified B group vitamins, I10 - Essential (primary) hypertension, R73.01 - Impaired fasting glucose, R79.89 - Other specified abnormal findings of blood chemistry, Z00.01 - Encounter for general adult medical examination with abnormal findings Hemoglobin A1c Today E53.8 - Deficiency of other specified B group vitamins, I10 - Essential (primary) hypertension, R73.01 - Impaired fasting glucose, R79.89 - Other specified abnormal findings of blood chemistry, Z00.01 - Encounter for general adult medical examination with abnormal findings Referrals Cologuard Test Z12.11 - Encounter for screening for malignant neoplasm of colon, Z12.12 - Encounter for screening for malignant neoplasm of rectum Coding Level of Care Code Est Pt Level 5 (04019) Diagnoses Hypertension, essential I10 B12 deficiency E53.8 LFT elevation R79.89 Impaired fasting blood sugar R73.01 Vitamin D deficiency E55.9 Additional Codes RAFFI-7 Assessment Billing - RAFFI-7 Assessment Tool: RAFFI-7 Assessment 13594 ([id number])
== END 2023-09-03 11:13 | disposition home or self-care (01) ==
PROVIDERS: PCP Internal Medicine; Visit Provider Internal Medicine
DX: I10 Essential (primary) hypertension (principal); E53.8 Deficiency of other specified B group vitamins; R79.89 Other specified abnormal findings of blood chemistry; R73.01 Impaired fasting glucose; E55.9 Vitamin D deficiency, unspecified
CPT/HCPCS: 99215

== ENCOUNTER 2023-09-06 07:48 | Outpatient (REF) | payer MEDICARE, SELFPAY ==
[2023-09-06 10:06] LABS: MANUAL DIFF FLAG NO
[2023-09-06 10:15] LABS: Basophils Percent Auto 0.3 % (0-2); Eosinophils Absolute Auto 0.6 X10*3/uL (0.0-0.4); Eosinophils Percent Auto 5.6 % (0-4); Estimated Average Glucose 105 mg/dL; Hematocrit 48.4 % (42.0-52.0); Hemoglobin A1c % 5.3 % (<6.0); Imm Gran Abs Auto 0.04 X10*3/uL (0.00-0.03); Imm Gran Pct Auto 0.4 % (0.0-0.4); Lymphocytes Absolute Auto 2.2 X10*3/uL (1.2-4.9); Mean Corpuscular HGB Conc 35.1 g/dl (31.0-36.0); Mean Corpuscular Hemoglobin 32.1 pg (27.0-33.0); Mean Corpuscular Volume 91.3 fL (80.0-98.0); Mean Platelet Volume 10.1 fL (9.4-12.4); Monocytes Absolute Auto 0.6 X10*3/uL (0.1-1.2); Monocytes Percent Auto 5.9 % (2-11); Neutrophils Absolute Auto 6.5 x10*3/uL (2.0-8.3); Neutrophils Percent Auto 65.8 % (45-73); Platelet Count 259 X10*3/uL (160-400); Red Cell Distribution Width 12.3 % (11.0-16.0); White Blood Count 9.9 X10*3/uL (4.8-10.8)
[2023-09-06 10:37] LABS: Alanine Aminotransferase 35 U/L (0-40); Albumin Level 4.6 g/dL (3.5-5.0); Alkaline Phosphatase 58 U/L (39-117); Anion Gap 13 (12-20); Aspartate Amino Transferase 25 U/L (5-37); Bilirubin Total 1.2 mg/dL (0.0-1.0); Blood Urea Nitrogen 11 mg/dL (9-16); Carbon Dioxide 31 mmol/L (22-29); Chloride 102 mmol/L (96-108); Cholesterol 166 mg/dL (<200); Estimated Glomerular Filt Rate > 60; Glucose Fasting 96 mg/dL (60-99); HDL Cholesterol 48 mg/dL (>40); LDL Cholesterol Calculated 100 mg/dL (<100); Potassium 3.8 mmol/L (3.3-5.1); Sodium 142 mmol/L (135-145); Total Protein 7.6 g/dL (6.5-8.0); Triglycerides 91 mg/dL (<150)
[2023-09-06 12:14] LABS: Vitamin B12 573 pg/mL (200-900)
[2023-09-10 18:07] LABS: Vitamin D 25-OH, D2 <4 ng/mL; Vitamin D 25-OH, D3 23 ng/mL; Vitamin D 25-OH, Total 23 ng/mL (30-100)
== END 2023-09-06 07:49 | disposition home or self-care (01) ==
LOC: HO.HMGCLDS 07:48
PROVIDERS: PCP Internal Medicine; Visit Provider Internal Medicine
DX: Z00.01 Encounter for general adult medical examination with abnormal findings (principal); I10 Essential (primary) hypertension; E53.8 Deficiency of other specified B group vitamins; R79.89 Other specified abnormal findings of blood chemistry; R73.01 Impaired fasting glucose; E55.9 Vitamin D deficiency, unspecified
CPT/HCPCS: 36415; 80053; 80061; 82306; 82607; 83036; 85025

== ENCOUNTER 2023-12-14 09:21 | Outpatient (AMB) | payer MEDICARE, SELFPAY ==
[2023-12-14 09:26] VITALS: BP 134/76; PULSE 76; O2SAT 95; BMI 27.6
--- NOTE | 2023-12-14 09:26 | A.OFFPC_ITS ---
Vital Signs 12/14/23 09:26 Height 5 ft 8 in Weight 181 lb 4 oz BMI 27.6 BP 134/76 Blood Pressure Location Lt brachial Position Sitting Pulse 76 Pulse Source Pulse Oximeter Pulse Oximetry (%) 95 Oxygen Delivery Method Room Air Intake Visit Reasons: 3-4 Month F/U Allergies codeine [CODEINE] Allergy (Severe, Verified 12/14/23 09:26) STOMACH UPSET lisinopril Adverse Reaction (Unknown, Verified 12/14/23 09:26) cough Codeine Sulfate Adverse Reaction (Unknown, Uncoded 08/21/22 10:38) nausea and vomiting Medication List - Last Reconciled 12/14/23 by Jessy Goodwin MD amlodipine 10 mg PO DAILY 90 days chlorthalidone 25 mg PO DAILY 90 days cholecalciferol (vitamin D3) 25 mcg PO DAILY 90 days cyanocobalamin (vitamin B-12) 1,000 mcg PO DAILY 90 days metoprolol succinate ER 100 mg PO DAILY 90 days Tobacco use date assessed: 12/14/23 Fall risk assessment: No Falls in past year Last assessed Fall Risk: 12/14/23 Dental Screening Dental Screen Date: 12/14/23 Did you have a dental visit in the last 12 months?: No Did you have a dental problem in the last 6 months where you did not have access to dental care?: No Was dental information given to patient?: No HPI 3-4 Month F/U HPI Details Patient is 68-year-old male came in today for his regular follow-up appointment He is doing well, taking all his medications no side effects He is taking amlodipine 10 mg, chlorthalidone 25 mg and metoprolol 100 mg, he brought in his blood pressure monitor today the machine is showing a higher num teresa than hours However at home his blood pressure is running fine he tells me IFS : stable / diet control, I have added hemoglobin A1c for this labs LFT : mild elevation, but stable B12 supplement for mild neuropathy at the bottom of feet He has a family history of neuropathy in his mother and brother as well However he is very active in sports and it is not bothering him that much Only when he is barefoot Labs are needed in January Follow-up 4 months [facility] Social History Housing: House Patient Tobacco Use Status: Never used Tobacco e-Cigarette/Vaping Use: Never Used Second Hand Smoke Exposure: No service: No Current occupational status: employed Cognitive needs: No Hearing needs: No Vision needs: No Questionnaire PHQ-9 Over the last 2 weeks, how often have you been bothered by any of the following problems? 1. Little interest or pleasure in doing things: not at all 2. Feeling down, depressed, or hopeless: not at all 3. Trouble falling or staying asleep, or sleeping too much: not at all 4. Feeling tired or having little energy: not at all 5. Poor appetite or overeating: not at all 6. Feeling bad about yourself - or that you are a failure or have let yourself or your family down: not at all 7. Trouble concentrating on things, such as reading the newspaper or watching television: not at all 8. Moving or speaking so slowly that other people could have noticed. Or the opposite - being so fidgety or restless that you have been moving around a lot more than usual: not at all 9. Thoughts that you would be better off or of hurting yourself in some way: not at all Total score: 0 Depression Screening Interpretation: Negative Depression Screening Done: Yes 52775 - PHQ-9 Billing: Yes Source: Developed by Drs. Robin Andrews, Tanya Rodríguez, Albert Henry and colleagues, with an educational mavis from [employer]. Thrive Questionnaire Date Thrive assessed: 12/14/23 I am a: Patient What is your living situation today?: I have a steady place to live Within the past 12 months, did the food you bought not last and you didn't have the money to get more?: Never true Within the past 12 months, did you worry whether your food would run out before you got money to buy more?: Never true Do you have trouble paying for medicines?: No Do you have trouble getting transportation to medical appointments?: No Do you have trouble paying your heating and electricity bill?: No Do you have trouble taking care of your child, family member or friend?: No Do you have trouble with day-to-day activities such as bathing, preparing meals, shopping, managing finances, etc.?: No Are you currently unemployed and looking for a job?: No Are you interested in more education?: No Please select the resources that you would like help with: None Currently or been in a relationship where the following occur: No concerns reported THRIVE Score: 0 AUDIT C Alcohol Use Questionnaire (AUDIT-C) 1. How often do you have a drink containing alcohol?: Never Total Score: 0 RAFFI-7 AMB Questionnaire RAFFI-7 Date RAFFI - 7 assessed: 09/03/23 Feeling nervous, anxious, or on edge: 0 = Not at all Not being able to stop or control worryin = Not at all Worrying too much about different things: 0 = Not at all Trouble relaxin = Not at all Being so restless that it is hard to sit still: 0 = Not at all Becoming easily annoyed or irritable: 0 = Not at all Feeling afraid as if something awful might happen: 0 = Not at all Total RAFFI-7 score (0-4 normal; 5-9 mild; 10-14 moderate; 15-21 severe): 0 Source: Developed by Drs. Robin Andrews, Tanya Rodríguez, Albert Henry and colleagues, with an educational mavis from [employer]. Review of Systems Const Denies chills and Denies fever(s) ENT Denies epistaxis and Denies nasal discharge Card Denies chest pain Resp Denies chest congestion, Denies cough and Denies hemoptysis GI Denies diarrhea and Denies nausea Skin/Breast Denies rash Neuro Reports no additional complaints Psych Reports no additional complaints Endo Reports no additional complaints Physical exam (Primary Care) Vital Signs: Last Vital Signs Pulse 76 12/14/23 09:26 BP 134/76 12/14/23 09:26 Pulse Ox 95 12/14/23 09:26 Oxygen Delivery Method Room Air 12/14/23 09:26 BMI result Body Mass Index 27.6 Tobacco/Smoking Status: Tobacco use Status Tobacco use date assessed 12/14/23 12/14/23 09:27 Patient Tobacco Use Status Never used Tobacco 12/14/23 09:27 e-Cigarette/Vaping Use Never Used 12/14/23 09:27 PHQ-9: PHQ-9 Score PHQ-9: Total score 0 12/14/23 09:46 Depression Screening Interpretation: Negative Thrive Assessment: Date of Thrive Assessment Date Thrive assessed 12/14/23 12/14/23 09:27 Currently or been in a relationship where the following occur: No concerns reported Const General: cooperative, comfortable and no acute distress Orientation/consciousness: patient oriented x3 HENMT Head: Yes normocephalic Eyes General: appearance normal, both eyes and all related structures Neck Neck: Yes supple Resp Effort & Inspection: normal respiratory effort, no cough and no stridor Cardio Rhythm: regular rhythm Heart sounds: S1 normal heart sound present and S2 normal heart sound present Skin General skin exam: turgor normal Neuro General: patient oriented x3, tone normal and moves all extremities Extrem Right lower extremity: no edema Left lower extremity: no edema Coding Level of Care Code Est Pt Level 4 (37836) Complex EM visit Add On G2211 Diagnoses Primary hypertension I10 Hypertension type: primary hypertension Impaired fasting blood sugar R73.01 Vitamin D deficiency E55.9 Peripheral polyneuropathy G62.9 Peripheral neuropathy type: polyneuropathy, unspecified Assessment & Plan Assessment & Plan (1) HTN (hypertension): Code(s): I10 - Essential (primary) hypertension Category: Medical Qualifiers: Hypertension type: primary hypertension Qualified Code(s): I10 - Essential (primary) hypertension (2) Impaired fasting blood sugar: Code(s): R73.01 - Impaired fasting glucose Category: Medical (3) Vitamin D deficiency: Code(s): E55.9 - Vitamin D deficiency, unspecified Category: Medical (4) Neuropathy, peripheral: Code(s): G62.9 - Polyneuropathy, unspecified Category: Medical Qualifiers: Peripheral neuropathy type: polyneuropathy, unspecified Qualified Code(s): G62.9 - Polyneuropathy, unspecified Plan Patient is 68-year-old male came in today for his regular follow-up appointment He is doing well, taking all his medications no side effects He is taking amlodipine 10 mg, chlorthalidone 25 mg and metoprolol 100 mg, he brought in his blood pressure monitor today the machine is showing a higher number than hours However at home his blood pressure is running fine he tells me IFS : stable / diet control, I have added hemoglobin A1c for this labs LFT : mild elevation, but stable B12 supplement for mild neuropathy at the bottom of feet He has a family history of neuropathy in his mother and brother as well However he is very active in sports and it is not bothering him that much Only when he is barefoot Labs are needed in January Follow-up 4 months Orders: Orders Vitamin D 25-OH (D2 and D3) Today E55.9 - Vitamin D deficiency, unspecified Hemoglobin A1c Today R73.01 - Impaired fasting glucose Complete Blood Count Auto Diff Today E53.8 - Deficiency of other specified B group vitamins, I10 - Essential (primary) hypertension, R73.01 - Impaired fasting glucose Comprehensive Met. Panel Today E53.8 - Deficiency of other specified B group vitamins, I10 - Essential (primary) hypertension, R73.01 - Impaired fasting glucose
== END 2023-12-14 09:53 | disposition home or self-care (01) ==
PROVIDERS: PCP Internal Medicine; Visit Provider Internal Medicine
DX: I10 Essential (primary) hypertension (principal); R73.01 Impaired fasting glucose; E55.9 Vitamin D deficiency, unspecified; G62.9 Polyneuropathy, unspecified

== ENCOUNTER → 2023-12-14 09:21 | Outpatient (BNVA) | payer MEDICARE, SELFPAY | PROVIDERS: PCP Internal Medicine; Visit Provider Internal Medicine | DX: I10 Essential (primary) hypertension (principal); R73.01 Impaired fasting glucose; E55.9 Vitamin D deficiency, unspecified; G62.9 Polyneuropathy, unspecified; Z79.899 Other long term (current) drug therapy | CPT/HCPCS: 96127; 99212 ==

== ENCOUNTER 2024-02-22 07:41 | Outpatient (REF) | payer MEDICARE, SELFPAY ==
[2024-02-22 09:52] LABS: MANUAL DIFF FLAG NO
[2024-02-22 10:08] LABS: Basophils Percent Auto 0.3 % (0-2); Eosinophils Absolute Auto 0.5 X10*3/uL (0.0-0.4); Eosinophils Percent Auto 5.6 % (0-4); Hematocrit 47.6 % (42.0-52.0); Hemoglobin 16.7 g/dl (14.0-18.0); Imm Gran Abs Auto 0.03 X10*3/uL (0.00-0.03); Imm Gran Pct Auto 0.3 % (0.0-0.4); Lymphocytes Absolute Auto 1.9 X10*3/uL (1.2-4.9); Lymphocytes Percent Auto 20.9 % (20-40); Mean Corpuscular HGB Conc 35.1 g/dl (31.0-36.0); Mean Corpuscular Hemoglobin 31.8 pg (27.0-33.0); Mean Corpuscular Volume 90.7 fL (80.0-98.0); Mean Platelet Volume 10.4 fL (9.4-12.4); Monocytes Absolute Auto 0.7 X10*3/uL (0.1-1.2); Monocytes Percent Auto 7.7 % (2-11); Neutrophils Percent Auto 65.2 % (45-73); Platelet Count 250 X10*3/uL (160-400); Red Blood Count 5.25 X10*6/uL (4.60-5.80); Red Cell Distribution Width 12.4 % (11.0-16.0); White Blood Count 9.1 X10*3/uL (4.8-10.8)
[2024-02-22 10:32] LABS: Estimated Average Glucose 108 mg/dL; Hemoglobin A1C 154.5643 umol/L; Hemoglobin A1c % 5.4 % (<6.0); Total Hemoglobin (HGBA1C) 4382.1648 umol/L
[2024-02-22 10:47] LABS: Alanine Aminotransferase 42 U/L (0-40); Albumin Level 4.6 g/dL (3.5-5.0); Alkaline Phosphatase 57 U/L (39-117); Anion Gap 12 (12-20); Aspartate Amino Transferase 31 U/L (5-37); Blood Urea Nitrogen 12 mg/dL (9-16); Calcium 9.7 mg/dL (8.4-10.2); Carbon Dioxide 29 mmol/L (22-29); Chloride 104 mmol/L (96-108); Estimated Glomerular Filt Rate > 60; Glucose Random 96 mg/dL (60-115); Potassium 3.3 mmol/L (3.3-5.1); Sodium 142 mmol/L (135-145); Total Protein 7.7 g/dL (6.5-8.0)
[2024-02-27 14:18] LABS: Vitamin D 25-OH, D2 <4 ng/mL; Vitamin D 25-OH, D3 25 ng/mL; Vitamin D 25-OH, Total 25 ng/mL (30-100)
== END 2024-02-22 07:42 | disposition home or self-care (01) ==
LOC: HO.HMGCLDS 07:41
PROVIDERS: PCP Internal Medicine; Visit Provider Internal Medicine
DX: R73.01 Impaired fasting glucose (principal); I10 Essential (primary) hypertension; E53.8 Deficiency of other specified B group vitamins; E55.9 Vitamin D deficiency, unspecified
CPT/HCPCS: 36415; 80053; 82306; 83036; 85025

== ENCOUNTER 2024-04-18 09:33 | Outpatient (AMB) | payer MEDICARE, SELFPAY ==
[2024-04-18 09:39] VITALS: BP 138/66; PULSE 75; TEMP 36.6; O2SAT 99; BMI 28.3
--- NOTE | 2024-04-18 09:39 | A.OFFPC_ITS ---
Vital Signs 04/18/24 09:39 Height 5 ft 8 in Weight 186 lb 6 oz BMI 28.3 BP 138/66 Blood Pressure Location Rt brachial Position Sitting Pulse 75 Pulse Source Pulse Oximeter Temp 97.9 F Temp Source Oral Pulse Oximetry (%) 99 Oxygen Delivery Method Room Air Intake Visit Reasons: 4 months f/up Allergies codeine [CODEINE] Allergy (Severe, Verified 04/18/24 09:52) STOMACH UPSET lisinopril Adverse Reaction (Unknown, Verified 04/18/24 09:52) cough Codeine Sulfate Adverse Reaction (Unknown, Uncoded 08/21/22 10:38) nausea and vomiting Medication List - Last Reconciled 04/18/24 by Jessy Goodwin MD amlodipine 10 mg PO DAILY 90 days chlorthalidone 25 mg PO DAILY 90 days cholecalciferol (vitamin D3) 25 mcg PO DAILY 90 days cyanocobalamin (vitamin B-12) 1,000 mcg PO DAILY 90 days metoprolol succinate ER 100 mg PO DAILY 90 days Tobacco use date assessed: 04/18/24 Fall risk assessment: No Falls in past year Last assessed Fall Risk: 04/18/24 Dental Screening Dental Screen Date: 04/18/24 Did you have a dental visit in the last 12 months?: Yes Did you have a dental problem in the last 6 months where you did not have access to dental care?: No Was dental information given to patient?: Patient has dentist HPI 4 months f/up HPI Details History - The patient is a 68-year-old male pres enting with a regular follow-up appointment. - Regular exercise is part of the patien t?s lifestyle, attending a gym and par ticipating in activities like treadmill walking and cycling. - There has been some weight fluctuation ; currently, his weight is 186 pounds, with a note of achieving a low of 181 pounds recently . - The patient experiences no difficultie s related to his medications, though there has been a noted issue with [facility] pharmacy regarding prescription processing. - Historically, the patient maintains a regimen including Vitamin B12 and inconsistently taking Vitamin D. - Recent lab results in January were re portedly within normal limits, with specific attention to electrolytes, kidney function, liver function, and CBC. - Medications include Amlodipine, Chlort halidone, Metoprolol, alongside vitamin supplements. Problem List - Essential Hypertension - Overweight - prediabetes - overweight - peripheral neuropathy [stable] Patient Instructions - Continue to take Vitamin B12 daily and try to be more consistent with Vitamin D intake. - Engage in regular physical activity as tolerated, considering treadmill and cycling exercises. - Monitor weight regularly and attempt t o maintain or decrease weight if advised by primary care measurements. - Address prescription management issues with [facility]; ensure they receive the necessary communications. - Follow up with the next scheduled appo intment in September for the annual wellness visit and complete necessary blood tests as scheduled. Review of Systems - General: Reports recent activity in [facility] gym with no adverse symptoms during or post exercises. - General: No fever no chills - Neurological: No headaches no dizziness - Ear nose throat: No sore throat no hearing difficulty no ear pain - Cardiovascular: No syncope, no chest pain, no palpitations - Gastrointestinal: No nausea vomiting or diarrhea - Endocrine: No polyuria polydipsia no heat intolerance - Genitourinary: No dysuria , no blood in urine Physical Exam General: No acute distress HEENT: No acute findings Neck: Supple Respiratory system: Able to talk in full sentences, no audible wheeze cardiovascular: S1-S2 regular in rate and rhythm Gastrointestinal: No pain Extremities: No swelling of ankles 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 1. Little interest or pleasure in doing things: not at all 2. Feeling down, depressed, or hopeless: not at all 3. Trouble falling or staying asleep, or sleeping too much: not at all 4. Feeling tired or having little energy: not at all 5. Poor appetite or overeating: not at all 6. Feeling bad about yourself - or that you are a failure or have let yourself or your family down: not at all 7. Trouble concentrating on things, such as reading the newspaper or watching television: not at all 8. Moving or speaking so slowly that other people could have noticed. Or the opposite - being so fidgety or restless that you have been moving around a lot more than usual: not at all 9. Thoughts that you would be better off or of hurting yourself in some way: not at all Total score: 0 Depression Screening Interpretation: Negative Depression Screening Done: Yes 26300 - PHQ-9 Billing: Yes Source: Developed by Drs. Robin Andrews, Tanya Rodríguez, Albert Henry and colleagues, with an educational mavis from [employer]. Thrive Questionnaire Date Thrive assessed: 04/18/24 I am a: Patient What is your living situation today?: I have a steady place to live Within the past 12 months, did the food you bought not last and you didn't have the money to get more?: Never true Within the past 12 months, did you worry whether your food would run out before you got money to buy more?: Never true Do you have trouble paying for medicines?: No Do you have trouble getting transportation to medical appointments?: No Do you have trouble paying your heating and electricity bill?: No Do you have trouble taking care of your child, family member or friend?: No Do you have trouble with day-to-day activities such as bathing, preparing meals, shopping, managing finances, etc.?: No Are you currently unemployed and looking for a job?: No Are you interested in more education?: No Please select the resources that you would like help with: None Currently or been in a relationship where the following occur: No concerns reported THRIVE Score: 0 AUDIT C Alcohol Use Questionnaire (AUDIT-C) 1. How often do you have a drink containing alcohol?: Never 3. How often do you have six or more drinks on one occasion?: Never Total Score: 0 Score Reviewed/Action Taken: Yes RAFFI-7 AMB Questionnaire RAFFI-7 Date RAFFI - 7 assessed: 04/18/24 Feeling nervous, anxious, or on edge: 0 = Not at all Not being able to stop or control worryin = Not at all Worrying too much about different things: 0 = Not at all Trouble relaxin = Not at all Being so restless that it is hard to sit still: 0 = Not at all Becoming easily annoyed or irritable: 0 = Not at all Feeling afraid as if something awful might happen: 0 = Not at all Total RAFFI-7 score (0-4 normal; 5-9 mild; 10-14 moderate; 15-21 severe): 0 Source: Developed by Drs. Robin Andrews, Tanya Rodríguez, Albert Henry and colleagues, with an educational mavis from [employer]. RAFFI-7 Assessment Billing RAFFI-7 Assessment Tool: RAFFI-7 Assessment 17221 Physical exam (Primary Care) Vital Signs: Last Vital Signs Temp 97.9 F 04/18/24 09:39 Pulse 75 04/18/24 09:39 BP 138/66 04/18/24 09:39 Pulse Ox 99 04/18/24 09:39 Oxygen Delivery Method Room Air 04/18/24 09:39 BMI result Body Mass Index 28.3 Tobacco/Smoking Status: Tobacco use Status Tobacco use date assessed 04/18/24 04/18/24 09:52 Patient Tobacco Use Status Never used Tobacco 04/18/24 09:40 e-Cigarette/Vaping Use Never Used 04/18/24 09:40 PHQ-9: PHQ-9 Score PHQ-9: Total score 0 04/18/24 09:52 Depression Screening Interpretation: Negative Thrive Assessment: Date of Thrive Assessment Date Thrive assessed 04/18/24 04/18/24 09:52 Currently or been in a relationship where the following occur: No concerns reported Coding Level of Care Code Est Pt Level 4 (15630) Complex EM visit Add On G2211 Diagnoses Hypertension, essential I10 B12 deficiency E53.8 LFT elevation R79.89 Impaired fasting blood sugar R73.01 Vitamin D deficiency E55.9 Peripheral polyneuropathy G62.9 Peripheral neuropathy type: polyneuropathy, unspecified Additional Codes RAFFI-7 Assessment Billing - RAFFI-7 Assessment Tool: RAFFI-7 Assessment 05614 ([id number]) PHQ-9 - 76427 - PHQ-9 Billing: Yes ([id number]) Assessment & Plan Assessment & Plan (1) Hypertension, essential: Code(s): I10 - Essential (primary) hypertension Category: Medical (2) B12 deficiency: Code(s): E53.8 - Deficiency of other specified B group vitamins Category: Medical (3) LFT elevation: Code(s): R79.89 - Other specified abnormal findings of blood chemistry Category: Medical (4) Impaired fasting blood sugar: Code(s): R73.01 - Impaired fasting glucose Category: Medical (5) Vitamin D deficiency: Code(s): E55.9 - Vitamin D deficiency, unspecified Category: Medical (6) Neuropathy, peripheral: Code(s): G62.9 - Polyneuropathy, unspecified Category: Medical Qualifiers: Peripheral neuropathy type: polyneuropathy, unspecified Qualified Code(s): G62.9 - Polyneuropathy, unspecified Plan History - The patient is a 68-year-old male presenting with a regular follow-up appointment. - Regular exercise is part of the patient?s lifestyle, attending a gym and participating in activities like treadmill walking and cycling. - There has been some weight fluctuation; currently, his weight is 186 pounds, with a note of achieving a low of 181 pounds recently . - The patient experiences no difficulties related to his medications, though there has been a noted issue with [facility] pharmacy regarding prescription processing. - Historically, the patient maintains a regimen including Vitamin B12 and inconsistently taking Vitamin D. - Recent lab results in January were reportedly within normal limits, with specific attention to electrolytes, kidney function, liver function, and CBC. - Medications include Amlodipine, Chlorthalidone, Metoprolol, alongside vitamin supplements. - pre diabetes Problem List - Essential Hypertension - Overweight - prediabetes - overweight - peripheral neuropathy [stable] Patient Instructions - Continue to take Vitamin B12 daily and try to be more consistent with Vitamin D intake. - Engage in regular physical activity as tolerated, considering treadmill and cycling exercises. - Monitor weight regularly and attempt to maintain or decrease weight if advised by primary care measurements. - Address prescription management issues with [facility]; ensure they receive the necessary communications. - Follow up with the next scheduled appointment in September for the annual wellness visit and complete necessary blood tests as scheduled. Orders: Orders Complete Blood Count Auto Diff Today E53.8 - Deficiency of other specified B group vitamins, E55.9 - Vitamin D deficiency, unspecified, G62.9 - Polyne uropathy, unspecified, I10 - Essential (primary) hypertension, R73.01 - Impaired fasting glucose, R79.89 - Other specified abnormal findings of blood chemistry Lipid Panel Today E53.8 - Deficiency of other specified B group vitamins, E55.9 - Vitamin D deficiency, unspecified, G62.9 - Polyneuropathy, unspecified, I10 - Essential (primary) hypertension, R73.01 - Impaired fasting glucose, R79.89 - Other specified abnormal findings of blood chemistry Vitamin D 25-OH (D2 and D3) Today E53.8 - Deficiency of other specified B group vitamins, E55.9 - Vitamin D deficiency, unspecified, G62.9 - Polyneuropathy, unspecified, I10 - Essential (primary) hypertension, R73.01 - Impaired fasting glucose, R79.89 - Other specified abnormal findings of blood chemistry Vitamin B12 Today E53.8 - Deficiency of other specified B group vitamins, E55.9 - Vitamin D deficiency, unspecified, G62.9 - Polyneuropathy, unspecified, I10 - Essential (primary) hypertension, R73.01 - Impaired fasting glucose, R79.89 - Other specified abnormal findings of blood chemistry Hemoglobin A1c Today R73.01 - Impaired fasting glucose Comprehensive Otho. Panel Fast Today E53.8 - Deficiency of other specified B group vitamins, E55.9 - Vitamin D deficiency, unspecified, G62.9 - Polyneuropathy, unspecified, I10 - Essential (primary) hypertension, R73.01 - Impaired fasting glucose, R79.89 - Other specified abnormal findings of blood chemistry Medications: Refilled cyanocobalamin (vitamin B-12) 1,000 mcg PO DAILY 90 days 90 tabs 0RF metoprolol succinate ER 100 mg PO DAILY 90 days 90 tabs 3RF amlodipine 10 mg PO DAILY 90 days 90 tabs 3RF I10 - Essential (primary) hypertension chlorthalidone 25 mg PO DAILY 90 days 90 tabs 3RF cholecalciferol (vitamin D3) 25 mcg PO DAILY 90 days 90 caps 0RF
--- OUTSIDE RECORDS SUMMARY | 2024-04-18 10:41 | XMS_ITS | Clinical Summary ---
Author Organization [employer] Address [address] [place] [address] Care Team Providers Care Rural Mail [employer]or Name Role Phone Unavailable Primary Care Provider Unavailabl e Immunizations Name Administration Dates Next Due Influenza Injectable Quadriv alant Preservative Free IIV4 MDCK 11/19/2021,12/26/2020 Influenza injectable quadriv alent IIV4 with preservative 12/14/2018,11/10/2017 Influenza injectable quadriv alent preservative free 12/24/2022,01/20/2017,01/25/2015 Influenza, seasonal, injecta ble, preservative free 11/15/2023,01/08/2016 Pfizer Covid-19 Vaccine 12+ 11/15/2023, Tdap 03/17/2019 Zoster, Recombinant 04/25/2022,12/24/2021 Social History Tobacco Use Types Packs/Day Years Used Date Smoking Tobacco: Never Assessed Sex and Gender Information Value Date Recorded Sex Assigned at Male 12/24/2022 2:32 PM EDT Legal Sex Male 12:09 PM EDT Gender Identity Male 12/24/2022 2:32 PM EDT Sexual Orientation Straight 12/24/2022 2: 32 PM EDT Plan of Treatment Health Maintenance Due Date Last Done Comments CT Colonography 1957 Colonoscopy 1957 Colorectal Cancer Screening 1957 Depression Screening 1957 FIT DNA/Cologuard 1957 FIT 1957 FOBT 1957 Lipid Panel 1957 SDOH Screening 1957 Sigmoidoscopy 1957 Alcohol/Substance Use Screening 1969 Tobacco Screening 1969 Hepatitis C Screening 08/10/1975 Pneumococcal Vaccine: 50+ Years (1 of 1 - PCV) 08/10/2007 DTaP/Tdap/Td Vaccines (2 - Td or Tdap) 03/17/2029 03/17/2019 RSV Patients and Patients Aged 60 years or older (1 - 1-dose 75+ series) 2032 Zoster Vaccines Completed 04/25/2022, 12/24/2021 COVID-19 Vaccine Completed 11/15/2023, 03/2022, 12/17/2020, Additional history exists Influenza Vaccine Completed 11/15/2023, , 11/19/2021, Additional history exists HIB Vaccines Aged Out No longer eligi ble based on patient's age to complete this topic HPV Vaccines Aged Out No longer eligi ble based on patient's age to complete this topic Hepatitis A Vaccines Aged Out No long er eligible based on patient's age to complete this topic Hepatitis B Vaccines Aged Out No long er eligible based on patient's age to complete this topic IPV Vaccines Aged Out No longer eligi ble based on patient's age to complete this topic Meningococcal Vaccine Aged Out No dagoberto claudy eligible based on patient's age to complete this topic RSV under 20 months Aged Out No longe r eligible based on patient's age to complete this topic Rotavirus Vaccines Aged Out No longer eligible based on patient's age to complete this topic Insurance MEDICARE [facility]
== END 2024-04-18 10:35 | disposition home or self-care (01) ==
PROVIDERS: PCP Internal Medicine; Visit Provider Internal Medicine
DX: I10 Essential (primary) hypertension (principal); E53.8 Deficiency of other specified B group vitamins; R79.89 Other specified abnormal findings of blood chemistry; R73.01 Impaired fasting glucose; E55.9 Vitamin D deficiency, unspecified; G62.9 Polyneuropathy, unspecified

== ENCOUNTER → 2024-04-18 09:33 | Outpatient (BNVA) | payer MEDICARE, SELFPAY | PROVIDERS: PCP Internal Medicine; Visit Provider Internal Medicine | DX: I10 Essential (primary) hypertension (principal); E53.8 Deficiency of other specified B group vitamins; R79.89 Other specified abnormal findings of blood chemistry; R73.01 Impaired fasting glucose; E55.9 Vitamin D deficiency, unspecified; G62.9 Polyneuropathy, unspecified | CPT/HCPCS: 96127; 99212 ==

== ENCOUNTER 2024-09-25 07:03 | Outpatient (REF) | payer MEDICARE, SELFPAY ==
[2024-09-25 10:18] LABS: MANUAL DIFF FLAG NO
[2024-09-25 10:35] LABS: Hematocrit 46.5 % (42.0-52.0); Hemoglobin 16.3 g/dl (14.0-18.0); Imm Gran Abs Auto 0.02 X10*3/uL (0.00-0.03); Imm Gran Pct Auto 0.2 % (0.0-0.4); Lymphocytes Absolute Auto 2.0 X10*3/uL (1.2-4.9); Mean Corpuscular HGB Conc 35.1 g/dl (31.0-36.0); Mean Corpuscular Hemoglobin 32.0 pg (27.0-33.0); Mean Corpuscular Volume 91.2 fL (80.0-98.0); NRBC Abs Auto 0.000 X10*3/uL (0.0-0.012); NRBC Pct Auto 0.0 /100WBC (0.0-0.2); Platelet Count 249 X10*3/uL (160-400); Red Blood Count 5.10 X10*6/uL (4.60-5.80); White Blood Count 9.1 X10*3/uL (4.8-10.8)
[2024-09-25 10:50] LABS: Alanine Aminotransferase 35 U/L (0-40); Albumin Level 4.7 g/dL (3.5-5.0); Alkaline Phosphatase 56 U/L (39-117); Anion Gap 12 (12-20); Aspartate Amino Transferase 33 U/L (5-37); Blood Urea Nitrogen 14 mg/dL (9-16); Calcium 9.7 mg/dL (8.4-10.2); Carbon Dioxide 30 mmol/L (22-29); Chloride 103 mmol/L (96-108); Cholesterol 167 mg/dL (<200); Estimated Glomerular Filt Rate > 60; HDL Cholesterol 48 mg/dL (>40); Potassium 3.4 mmol/L (3.3-5.1); Sodium 142 mmol/L (135-145); Total Protein 7.7 g/dL (6.5-8.0); Triglycerides 80 mg/dL (<150)
[2024-09-25 10:54] LABS: Hemoglobin A1C 158.8288 umol/L; Total Hemoglobin (HGBA1C) 4282.9844 umol/L
[2024-09-25 11:24] LABS: Vitamin B12 354 pg/mL (200-900)
[2024-09-29 13:23] LABS: Vitamin D 25-OH, D2 <4 ng/mL; Vitamin D 25-OH, D3 26 ng/mL; Vitamin D 25-OH, Total 26 ng/mL (30-100)
== END 2024-09-25 07:04 | disposition home or self-care (01) ==
LOC: HO.HMGCLDS 07:03
PROVIDERS: PCP Internal Medicine; Visit Provider Internal Medicine
DX: I10 Essential (primary) hypertension (principal); G62.9 Polyneuropathy, unspecified; E55.9 Vitamin D deficiency, unspecified; E53.8 Deficiency of other specified B group vitamins; R79.89 Other specified abnormal findings of blood chemistry; R73.01 Impaired fasting glucose
CPT/HCPCS: 36415; 80053; 80061; 82306; 82607; 83036; 85025

== ENCOUNTER 2024-09-27 10:02 | Outpatient (AMB) | payer MEDICARE, SELFPAY ==
--- NOTE | 2024-09-27 10:07 | A.OFFVIS_ITS ---
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 Accompanied by: Self / Same As Patient Allergies codeine (CODEINE) Allergy (Severe, Verified 09/27/24 10:10) STOMACH UPSET lisinopril Adverse Reaction (Unknown, Verified 09/27/24 10:10) cough Codeine Sulfate Adverse Reaction (Unknown, Uncoded 08/21/22 10:38) nausea and vomiting Medication List - Last Reconciled 09/27/24 by Jessy Goodwin MD amlodipine 10 mg PO DAILY 90 days chlorthalidone 25 mg PO DAILY 90 days cholecalciferol (vitamin D3) 25 mcg PO DAILY 90 days cyanocobalamin (vitamin B-12) 1,000 mcg PO DAILY 90 days metoprolol succinate ER 100 mg PO DAILY 90 days Do you need a note to return to daycare/school/sports/work: No HPI AWV G0439 HPI Details on going care follow up History of Present Illness - The patient is a 69-year-old male pres enting for a routine follow-up visit and Medicare wellness examination. - Reports having a history of essential hypertension, which has been followed regularly, blood pressure measurements have been managed with amlodipine, chlorthalidone, and metoprolol. - Reports a diagnosis of prediabetes wit h recent lab results showing a fasting blood glucose level of 101. - Allergy history includes reactions to Codeine and lisinopril without detailed description of allergic reactions. - Reports visiting [facility], [place] for vision assessments, the last of which involved obtaining new glasses due to scratched lenses without significant change in vision compared to previous assessments. 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 - No recent symptoms suggestive of depre ssion were reported or depressive episodes found in medical records. - History of following news closely with occasional feelings of being overwhelmed but no persistent anxiety or depressive symptoms reported. - History confirmed of negative colonosc opy with Cologuard screening test in 2023 prior health visit. - Laboratory results discussed indicate kidney function and liver enzyme tests within normal limits alongside contained lipid profile and B12 levels. - Last physical examination noted no sheryl nges from previous assessments with no significant physical limitations, cognitive deficits, or difficulties in performing daily living activities. - No urinary incontinence or gastrointes tinal complications were stated by the patient. Medications: - Amlodipine 10 mg daily for Hypertensio n - Chlorthalidone for Hypertension manage ment - Metoprolol for Hypertension management Social History: - Lives with his - Has two children, each with two offspr ing, both residing within the local region ([facility] and [place]) - Engages in regular exercise through pa rticipation in the old man [employer] league - Describes a balanced lifestyle support ing self-sufficiency in all major activities of daily living, including driving, bathing, and personal finances - Recently returned from a family vacati on and reports temporary indulgence in sweets and cookies - May attend activities at the [employer] gym at the [facility] Diagnostic Results: - Labs: Normal CBC, Electrolytes, and Ki dney Function - Fasting glucose: 101 (Prediabetic) - Lipid profile: Satisfactory - B12: Adequate levels - Vitamin D: Previously low; supplementa tion discussed - Colonoscopy via Cologuard: Negative in 2023 Problem List - Essential Hypertension - Prediabetes Patient Instructions - Continue current medication regimen fo r blood pressure management. - Encourage regular monitoring of blood pressure at home. - Maintain a balanced diet to help contr ol blood sugar levels, especially given prediabetic status. - Adhere to prescribed vitamin D supplem entation and possibly consider increased dose based on pending lab results. - Continue participation in regular phys ical activities such as softball to aid in overall health. - Return with healthcare proxy documenta tion at next appointment. - Schedule a follow-up after four months for continuous monitoring. Review of Systems - General: No fever no chills - Neurological: No headaches no dizziness - Ear nose throat: No sore throat no hearing difficulty no ear pain - Cardiovascular: No syncope, no chest pain, no palpitations - Gastrointestinal: No nausea vomiting or diarrhea - Endocrine: No polyuria polydipsia no heat intolerance - Genitourinary: No dysuria , no blood in urine Physical Exam General: No acute distress HEENT: No acute findings Neck: Supple Respiratory system: Able to talk in full sentences, no audible wheeze Cardiovascular: S1-S2 regular in rate and rhythm Gastrointestinal: No pain Extremities: No new findings, slight swelling noted in ankles due to amlodipine DIGITAL ANALYST: Alert awake oriented x3 motor sensory intact Skin: Normal turgor HPI Comments History of Present Illness Details AWV Medical/social history reviewed Past medical history reviewed [place] of care / care team list updated Surgical/ hospitalization history reviewed Current medications including OTC and supplements reviewed Family history reviewed Tobacco controlled form updated Alcohol use form updated Illicit drug use in social history reviewed Current diagnosis of depression ?screening updated Appropriate PHQ 2/PHQ-9 completed . Vital signs reviewed Alcohol tobacco drug use reviewed and discussed . MMSE completed . ? Fall risk: ?Assessed Fall history: ?None Have you had any falls with injury in the past year?? No Have you had 2 or more falls in the past year?? No Fall risk assessment completed Home safety discussed with the patient Functional ability assessed and discussed and documented Activities of daily living reviewed and appropriate actions taken . HRA filled out by the patient and reviewed by provider and scanned . Appropriate written screening schedule established . Any health advise needed provided . Advance care planning discussed with the patient , necessary paperwork filled Examination IPPE/AWE: Balance intact Romberg intact Tandem walk intact walk-in turn intact rise from sit to stand intact . ?Hearing ?whisper test pass . Medication list reviewed, patient is stable on medications All other providers patient is seeing discussed and noted . [facility] Surgical History No pertinent past surgical history Social History Housing: House Patient Tobacco Use Status: Never used Tobacco e-Cigarette/Vaping Use: Never Used Second Hand Smoke Exposure: No service: No Current occupational status: employed Cognitive needs: No Hearing needs: No Vision needs: No Questionnaire Medicare Wellness Checkup What [age] 65-71 What gender do you identify with?: male During the past 4 weeks, how much have you been bothered by emotional problems such as feeling anxious, depressed, irritable, sad or downhearted, and blue?: not at all During the past 4 weeks, has your physical & emotional health limited your social activities with family, friends, neighbors, or groups?: not at all During the past 4 weeks, how much bodily pain have you generally had?: very mild pain During the past 4 weeks, was someone available to help you if you needed & wanted help?: yes, as much as I wanted During the past 4 weeks, what was the hardest physical activity you could do for at least 2 minutes?: heavy Can you get to places out of walking distance without help? (For eg., can you travel alone on buses, taxis or drive your car?): Yes Can you go shopping for groceries or clothes without someone's help?: Yes Can you prepare your own meals?: Yes Can you do your housework without help?: Yes Because of any health problems, do you need the help of another person with your personal care needs such as eating, bathing, dressing or getting around the house?: No Can you handle your own money without help?: Yes During the past 4 weeks, how would you rate your health in general?: very good During the past 4 weeks how have things been going for you?: very well; could hardly better Are you having difficulties driving your car?: no Do you always fasten your seat belt when you are in a car?: yes, usually During past 4 weeks, have you been bothered by the following: never: Falling or dizzy when standing up, Sexual problems?, Trouble eating well?, Teeth or denture problems? and Problems using the telephone? and seldom: Tiredness or fatigue? Have you fallen 2 or more times in the past year?: No Are you afraid of falling?: No Are you a smoker?: no During the past 4 weeks, how many drinks of wine, beer, or other alcoholic beverages did you have?: no alcohol at all Do you exercise for about 20 minutes 3 or more times a week?: yes, most of the time Have you been given information to help with the following?: no: Hazards in your house that might hurt you? and no: Keeping track of your medications? How often do you have trouble taking medicines the way you have been told to take them?: I always take medicine as prescribed How confident are you that you can control & manage most of your health problems?: very confident What is your race?: White Mini Mental State Exam (MMSE) Orientation What is the (year) (season) (date) (day) (month)?: year, season, date, day and month Where are we (state) (county) (town or city) (hospital) (floor)?: state, county, town or city, hospital/clinic and floor Score Score: 10 Activity of Daily Living Bathing - sponge bath, tub bath or shower: receives no assistance (gets in/out by self, if usual bathing means Dressing - getting clothes from closets & drawers, including inner/outer garments & fasteners.: gets clothes & gets completely dressed without help Toileting - going to the 'toilet room' for urine/bowel elimination & cleaning self/arranging clothes: goes to toilet room, cleans self, arranges clothes without help Transfer: moves in & out of bed and chair without help (may use support object) Continence: controls urination/bowel movements completely by self Feeding: feeds self without help Total Score: 0 Information obtained from: patient Using telephone: independent Traveling: independent Shopping: independent Preparing meals: independent Housework: independent Taking medicine: independent Managing money: independent PHQ-9 Over the last 2 weeks, how often have you been bothered by any of the following problems? 1. Little interest or pleasure in doing things: not at all 2. Feeling down, depressed, or hopeless: not at all 3. Trouble falling or staying asleep, or sleeping too much: not at all 4. Feeling tired or having little energy: not at all 5. Poor appetite or overeating: not at all 6. Feeling bad about yourself - or that you are a failure or have let yourself or your family down: not at all 7. Trouble concentrating on things, such as reading the newspaper or watching television: not at all 8. Moving or speaking so slowly that other people could have noticed. Or the opposite - being so fidgety or restless that you have been moving around a lot more than usual: not at all 9. Thoughts that you would be better off or of hurting yourself in some way: not at all Total score: 0 Depression Screening Interpretation: Negative Depression Screening Done: Yes 82195 - PHQ-9 Billing: Yes Source: Developed by Drs. Robin Andrews, Tanya Rodríguez, Albert Henry and colleagues, with an educational mavis from [employer]. RAFFI-7 AMB Questionnaire RAFFI-7 Date RAFFI - 7 assessed: 09/27/24 Feeling nervous, anxious, or on edge: 0 = Not at all Not being able to stop or control worryin = Not at all Worrying too much about different things: 0 = Not at all Trouble relaxin = Not at all Being so restless that it is hard to sit still: 0 = Not at all Becoming easily annoyed or irritable: 0 = Not at all Feeling afraid as if something awful might happen: 0 = Not at all Total RAFFI-7 score (0-4 normal; 5-9 mild; 10-14 moderate; 15-21 severe): 0 Source: Developed by Drs. Robin Andrews, Tanya Rodríguez, Albert Henry and colleagues, with an educational mavis from [employer]. RAFFI-7 Assessment Billing RAFFI-7 Assessment Tool: RAFFI-7 Assessment 11396 Physical Exam Vital Signs: Last Vital Signs Pulse 66 09/27/24 10:08 BP 134/70 09/27/24 10:08 Pulse Ox 97 09/27/24 10:08 BMI result Body Mass Index 28.0 Assessment & Plan Assessment & Plan (1) Medicare annual wellness visit, subsequent: Code(s): Z00.00 - Encounter for general adult medical examination without abnormal findings (2) Hypertension, essential: Code(s): I10 - Essential (primary) hypertension (3) B12 deficiency: Code(s): E53.8 - Deficiency of other specified B group vitamins (4) LFT elevation: Code(s): R79.89 - Other specified abnormal findings of blood chemistry (5) Impaired fasting blood sugar: Code(s): R73.01 - Impaired fasting glucose (6) Vitamin D deficiency: Code(s): E55.9 - Vitamin D deficiency, unspecified (7) Neuropathy, peripheral: Code(s): G62.9 - Polyneuropathy, unspecified Qualifiers: Peripheral neuropathy type: polyneuropathy, unspecified Qualified Cod e(s): G62.9 - Polyneuropathy, unspecified Plan on going care follow up History of Present Illness - The patient is a 69-year-old male presenting for a routine follow-up visit and Medicare wellness examination. - Reports having a history of essential hypertension, which has been followed regularly, blood pressure measurements have been managed with amlodipine, chlorthalidone, and metoprolol. - Reports a diagnosis of prediabetes with recent lab results showing a fasting blood glucose level of 101. - Allergy history includes reactions to Codeine and lisinopril without detailed description of allergic reactions. - Reports visiting [facility], [place] for vision assessments, the last of which involved obtaining new glasses due to scratched lenses without significant change in vision compared to previous assessments. - States being physically active, plays in [employer] for individuals over 58. - No recent symptoms suggestive of depression were reported or depressive episodes found in medical records. - History of following news closely with occasional feelings of being overwhelmed but no persistent anxiety or depressive symptoms reported. - History confirmed of negative colonoscopy with Cologuard screening test in 2023 prior health visit. - Laboratory results discussed indicate kidney function and liver enzyme tests within normal limits alongside contained lipid profile and B12 levels. - Last physical examination noted no changes from previous assessments with no significant physical limitations, cognitive deficits, or difficulties in performing daily living activities. - No urinary incontinence or gastrointestinal complications were stated by the patient. Medications: - Amlodipine 10 mg daily for Hypertension - Chlorthalidone for Hypertension management - Metoprolol for Hypertension management Social History: - Lives with his - Has two children, each with two offspring, both residing within the local region ([facility]) - Engages in regular exercise through participation in the [employer] - Describes a balanced lifestyle supporting self-sufficiency in all major activities of daily living, including driving, bathing, and personal finances - Recently returned from a family vacation and reports temporary indulgence in sweets and cookies - May attend activities at the [employer] gym at the [facility] Diagnostic Results: - Labs: Normal CBC, Electrolytes, and Kidney Function - Fasting glucose: 101 (Prediabetic) - Lipid profile: Satisfactory - B12: Adequate levels - Vitamin D: Previously low; supplementation discussed - Colonoscopy via Cologuard: Negative in 2023 Problem List - Essential Hypertension - Prediabetes - fell neuropathy stable Patient Instructions - Continue current medication regimen for blood pressure management. - Encourage regular monitoring of blood pressure at home. - Maintain a balanced diet to help control blood sugar levels, especially given prediabetic status. - Adhere to prescribed vitamin D supplementation and possibly consider increased dose based on pending lab results. - Continue participation in regular physical activities such as softball to aid in overall health. - Return with healthcare proxy documentation at next appointment. - Schedule a follow-up after four months for continuous monitoring. Orders: Orders Comprehensive Met. Panel 3 Months I10 - Essential (primary) hypertension, R73.0 1 - Impaired fasting glucose Hemoglobin A1c 3 Months I10 - Essential (primary) hypertension, R73.01 - Impaired fasting glucose Quality Reporting (2019) Depression/Bipolar (159/160/161/177) PHQ-9: Total score: 0 Coding Level of Care Code Medicare Subsequent (G0439) Est Pt Level 3 (30868) Diagnoses Medicare annual wellness visit, subsequent Z00.00 Hypertension, essential I10 B12 deficiency E53.8 LFT elevation R79.89 Impaired fasting blood sugar R73.01 Vitamin D deficiency E55.9 Peripheral polyneuropathy G62.9 Peripheral neuropathy type: polyneuropathy, unspecified CPT Codes Advance Care Planning - Time spent: 1-15 minutes, on File ([id number]) Additional Codes RAFFI-7 Assessment Billing - RAFFI-7 Assessment Tool: RAFFI-7 Assessment 20818 ([id number]) PHQ-9 - 27583 - PHQ-9 Billing: Yes ([id number]) Advance Care Planning Advance Care Planning discussion: Completed/Scanned Forms completed: MOLST Time spent: 1-15 minutes, on File Actual minutes spent: 14
[2024-09-27 10:08] VITALS: BP 134/70; PULSE 66; O2SAT 97; BMI 28.0
--- OUTSIDE RECORDS SUMMARY | 2024-09-27 10:34 | XMS_ITS | Clinical Summary ---
Author Organization [employer] Address [address] [place] [address] Care Team Providers Care Escort Service Attendant Name Role Phone Unavailable Primary Care Provider Unavailabl e Immunizations Immunization Administration Dates Next Due Influenza Injectable Quadriv [...] Years (1 of 1 - PCV) 08/10/2007 COVID-19 Vaccine ( season) 2024 11/15/2023, 12/24/2022, 12/17/2020, Additional history exists Influenza Vaccine (#1) 2024 , 12/24/2022, 11/19/2021, Additional history exists DTaP/Tdap/Td Vaccines (2 - Td or Tdap) 03/17/2029 03/17/2019 RSV Patients and Patients Aged 60 years or older (1 - 1-dose 75+ series) 2032 Zoster Vaccines Completed 04/25/2022, 12/24/2021 HIB Vaccines Aged Out No longer eligi [...] patient's age to complete this topic Meningococcal B Vaccine Aged Out No l onger eligible based on patient's age to complete this topic Meningococcal Vaccine Aged Out No dagoberto claudy eligible based on patient's age to complete this topic RSV under 20 months Aged Out No longe r eligible based on patient's age to complete this topic Rotavirus Vaccines Aged Out No longer eligible based on patient's age to complete this topic Insurance [place] [address] [place] [id number] [facility] MED CARE
--- OUTSIDE RECORDS SUMMARY | 2024-09-27 10:35 | XMS_ITS | Patient Health Record ---
Author Organization [facility] Address [address] [place] [address] Care Team Providers Care Pan Pusher Name Role Phone Buddy LOMELI, Asma Primary Care Provider Robin Rand [phone] Allergies Allergen (clinical drug ingredient) Drug/Non Drug Allergy documented on EMR Reaction Allergy Type Onset Date Status codeine codeine (uncoded) Unknown Allergy Ac tive Reason For Referral No Information Medications Medication SIG (Take, Route, Fr equency, Duration) Notes Start Date End Date Status Metoprolol Tartrate Active Plan Of Treatment Future Test Test Name Order Date COLONOSCOPY 04/29/2011 Insurance Providers Payer Name Payer Address Payer Phone Subscriber Number Group Number Insured Name Patient Relationship to Insured Coverage Start Date Coverage End Date [facility] [address] [place], [place] [id number] [phone] [id number] SHAMEKA MCCULLOUGH Self - patient is the insured Medical (General) History Medical History History ICD Code HTN Denies PA,DM,CVA,Lung disease,renal dise ase Surgical History Surgery Date(Month/Year) Hernia
== END 2024-09-27 10:50 | disposition home or self-care (01) ==
LOC: HO.HMCC 10:03
PROVIDERS: PCP Internal Medicine; Visit Provider Internal Medicine
DX: Z00.00 Encounter for general adult medical examination without abnormal findings (principal); I10 Essential (primary) hypertension; E53.8 Deficiency of other specified B group vitamins; R79.89 Other specified abnormal findings of blood chemistry; R73.01 Impaired fasting glucose; E55.9 Vitamin D deficiency, unspecified; G62.9 Polyneuropathy, unspecified

== ENCOUNTER → 2024-09-27 10:02 | Outpatient (BNVA) | payer MEDICARE, SELFPAY | PROVIDERS: PCP Internal Medicine; Visit Provider Internal Medicine | DX: Z00.00 Encounter for general adult medical examination without abnormal findings (principal); I10 Essential (primary) hypertension; E53.8 Deficiency of other specified B group vitamins; R79.89 Other specified abnormal findings of blood chemistry; R73.01 Impaired fasting glucose; E55.9 Vitamin D deficiency, unspecified; G62.9 Polyneuropathy, unspecified | CPT/HCPCS: 96127; 99212 ==

== ENCOUNTER 2025-01-24 11:56 | Outpatient (AMB) | payer MEDICARE, SELFPAY ==
[2025-01-24 11:58] VITALS: BP 132/74; PULSE 68; O2SAT 98; BMI 28.4
--- NOTE | 2025-01-24 11:58 | A.OFFPC_ITS ---
Vital Signs 01/24/25 11:58 Height 5 ft 8 in Weight 187 lb BMI 28.4 BP 132/74 Blood Pressure Location Lt brachial Position Sitting Pulse 68 Pulse Source Pulse Oximeter Pulse Oximetry (%) 98 Intake Visit Reasons: follow up Allergies codeine (CODEINE) Allergy (Severe, Verified 01/24/25 11:58) STOMACH UPSET lisinopril Adverse Reaction (Unknown, Verified 01/24/25 11:58) cough Codeine Sulfate Adverse Reaction (Unknown, Uncoded 08/21/22 10:38) nausea and vomiting Medication List - Last Reconciled 01/24/25 by Jessy Goodwin MD amlodipine 10 mg PO DAILY 90 days chlorthalidone 25 mg PO DAILY 90 days cholecalciferol (vitamin D3) 25 mcg PO DAILY 90 days cyanocobalamin (vitamin B-12) 1,000 mcg PO DAILY 90 days metoprolol succinate ER 100 mg PO DAILY 90 days Tobacco use date assessed: 04/18/24 Fall risk assessment: No Falls in past year Last assessed Fall Risk: 01/24/25 Dental Screening Dental Screen Date: 04/18/24 HPI HPI Comments History of Present Illness Details History of Present Illness The patient is a 69 year old individual presenting for a follow-up visit for chronic disease management. Hx of Neuropathy, Vit D and B12 def Essential Hypertension: - The patient is managed on amlodipine, chlorthalidone, and metoprolol. - The patient's blood pressure is 132/74 mmHg, which is unchanged from the last visit. - The patient denies any side effects fr om the medications. Hyperlipidemia: - Cholesterol is well-controlled, with a recent LDL of 103 mg/dL from labs done in September. Vitamin D Deficiency: - Recent labs from September indicate that vitamin D levels remain low. - The patient reports taking a vitamin D supplement daily. Health Maintenance: - The patient received the flu vaccine a t a [facility]. - The patient reports frequent travel vi a bus trips and has an upcoming trip to [place]. Diagnostic Results: - Labs from September show a normal CBC, no rmal kidney function, and normal electrolytes. - Fasting glucose was 101 mg/dL. - Liver enzymes are stable. - LDL cholesterol is 103 mg/dL. - Vitamin D level remains low. [facility] Surgical History No pertinent past surgical history Social History Housing: House Patient Tobacco Use Status: Never used Tobacco e-Cigarette/Vaping Use: Never Used Second Hand Smoke Exposure: No service: No Current occupational status: employed Cognitive needs: No Hearing needs: No Vision needs: No Questionnaire Thrive Questionnaire Date Thrive assessed: 04/18/24 I am a: Patient What is your living situation today?: I have a steady place to live Within the past 12 months, did the food you bought not last and you didn't have the money to get more?: Never true Within the past 12 months, did you worry whether your food would run out before you got money to buy more?: Never true Do you have trouble paying for medicines?: No Do you have trouble getting transportation to medical appointments?: No Do you have trouble paying your heating and electricity bill?: No Do you have trouble taking care of your child, family member or friend?: No Do you have trouble with day-to-day activities such as bathing, preparing meals, shopping, managing finances, etc.?: No Are you currently unemployed and looking for a job?: No Are you interested in more education?: No Please select the resources that you would like help with: None Currently or been in a relationship where the following occur: No concerns reported THRIVE Score: 0 RAFFI-7 AMB Questionnaire RAFFI-7 Date RAFFI - 7 assessed: 09/27/24 Source: Developed by Drs. Robin Andrews, Tanya Rodríguez, Albert Henry and colleagues, with an educational mavis from [employer]. Review of Systems Narrative Review of Systems - General: No fever no chills - Neurological: No headaches no dizziness - Ear nose throat: No sore throat no hearing difficulty no ear pain - Cardiovascular: No syncope, no chest pain, no palpitations - Gastrointestinal: No nausea vomiting or diarrhea - Endocrine: No polyuria polydipsia no heat intolerance - Genitourinary: No dysuria , no blood in urine Physical exam (Primary Care) Vital Signs: Last Vital Signs Pulse 68 01/24/25 11:58 BP 132/74 01/24/25 11:58 Pulse Ox 98 01/24/25 11:58 BMI result Body Mass Index 28.4 Tobacco/Smoking Status: Tobacco use Status Tobacco use date assessed 04/18/24 01/24/25 11:59 Patient Tobacco Use Status Never used Tobacco 01/24/25 11:59 e-Cigarette/Vaping Use Never Used 01/24/25 11:59 Thrive Assessment: Date of Thrive Assessment Date Thrive assessed 04/18/24 01/24/25 11:59 Currently or been in a relationship where the following occur: No concerns reported Narrative Physical Exam - General: No acute distress - HEENT: No acute findings - Neck: Supple - Respiratory system: Able to talk in full sentences, no audible wheeze - Cardiovascular: S1-S2 regular in rate and rhythm - Gastrointestinal: No pain - Extremities: No new findings - 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: Alert awake oriented x3 motor intact - Skin: Normal turgor Coding Level of Care Code Est Pt Level 3 (69728) Complex visit Add On G2211 Diagnoses Hypertension, essential I10 B12 deficiency E53.8 Impaired fasting blood sugar R73.01 Vitamin D deficiency E55.9 Peripheral polyneuropathy G62.9 Peripheral neuropathy type: polyneuropathy, unspecified Assessment & Plan Assessment & Plan (1) Hypertension, essential: Code(s): I10 - Essential (primary) hypertension Category: Medical (2) B12 deficiency: Code(s): E53.8 - Deficiency of other specified B group vitamins Category: Medical (3) Impaired fasting blood sugar: Comment: diet control Code(s): R73.01 - Impaired fasting glucose Category: Medical (4) Vitamin D deficiency: Code(s): E55.9 - Vitamin D deficiency, unspecified Category: Medical (5) Neuropathy, peripheral: Comment: stable Code(s): G62.9 - Polyneuropathy, unspecified Category: Medical Qualifiers: Peripheral neuropathy type: polyneuropathy, unspecified Qualified Code(s): G62.9 - Polyneuropathy, unspecified Plan Problem List - Essential Hypertension - Hyperlipidemia - Vitamin D Deficiency - Preventative care: Influenza vaccination Plan - Continue current medications, including amlodipine, chlorthalidone, and metoprolol. - Refills for current medications will be sent. - Continue taking the daily vitamin D supplement. - An order will be placed for blood tests to be completed a couple of days before the next appointment. - Follow up in four months, at the end of May. Medications: Refilled amlodipine 10 mg PO DAILY 90 tabs 1RF 90 days I10 - Essential (primary) hypertension chlorthalidone 25 mg PO DAILY 90 tabs 1RF 90 days metoprolol succinate ER 100 mg PO DAILY 90 tabs 1RF 90 days cyanocobalamin (vitamin B-12) 1,000 mcg PO DAILY 90 tabs 0RF 90 days cholecalciferol (vitamin D3) 25 mcg PO DAILY 90 caps 0RF 90 days
--- OUTSIDE RECORDS SUMMARY | 2025-01-24 14:23 | XMS_ITS | Patient Health Record ---
Author Organization [facility] Address [address] [place] [address] Care Team Providers Care Career Specialist Name Role Phone Buddy LOMELI, Asma Primary Care Provider Robin Rand [phone] Allergies Allergen (clinical drug ingredient) Drug/Non Drug Allergy documented on EMR Reaction Allergy Type Onset Date Status codeine codeine (uncoded) Unknown Allergy Ac tive Reason For Referral No Information Medications Medication SIG (Take, Route, Fr equency, Duration) Notes Start Date End Date Status Metoprolol Tartrate Active Social History Social History Additional Details Category Social Info Options Details Miscellaneous: Marital status: 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 Plan Of Treatment Future Test Test Name Order Date COLONOSCOPY 04/29/2011 Insurance Providers Payer Name Payer Address Payer Phone Subscriber Number Group Number Insured Name Patient Relationship to Insured Coverage Start Date Coverage End Date [facility] [address] [place], [place] [id number] SHAMEKA MCCULLOUGH Self - patient is the insured Medical (General) History Medical History History ICD Code HTN Denies [place],DM,CVA,Lung disease,renal dise ase Surgical History Surgery Date(Month/Year) Hernia
--- OUTSIDE RECORDS SUMMARY | 2025-01-24 14:23 | XMS_ITS | Clinical Summary ---
Author Organization [employer] Address [address] [place] [address] Care Team Providers Care Ornament Stitcher Name Role Phone Unavailable Primary Care Provider [...] age to complete this topic Insurance [place] [address] [place] [phone] [facility] [employer] MEDICARE SUPPLEMENT
== END 2025-01-24 12:22 | disposition home or self-care (01) ==
LOC: HO.HMCC 11:57
PROVIDERS: PCP Internal Medicine; Visit Provider Internal Medicine
DX: I10 Essential (primary) hypertension (principal); E53.8 Deficiency of other specified B group vitamins; R73.01 Impaired fasting glucose; E55.9 Vitamin D deficiency, unspecified; G62.9 Polyneuropathy, unspecified

== ENCOUNTER → 2025-01-24 11:56 | Outpatient (BNVA) | payer MEDICARE, SELFPAY | PROVIDERS: PCP Internal Medicine; Visit Provider Internal Medicine | DX: I10 Essential (primary) hypertension (principal); E53.8 Deficiency of other specified B group vitamins; R73.01 Impaired fasting glucose; E55.9 Vitamin D deficiency, unspecified; G62.9 Polyneuropathy, unspecified | CPT/HCPCS: 99212 ==